=== PATIENT | female | born 1960 | race African-American/Black ===

== ENCOUNTER 2025-03-28 01:54 | Day surgery (SDC) | payer OTHER, SELFPAY ==
--- OUTSIDE RECORDS SUMMARY | 1999-05-24 04:00 | XMS_ITS | Continuity of Care Document ---
Author Organization [facility] Address [address] [place] [address] [address] [place] [address] Phone Care Team Providers Care Occupational Safety Specialist Name Role Phone Nico Fitzgerald Unavailable Unavailable Advance Directives Directive Yes / No Effective Date File Name No Information Encounters Encounter Description Practice Location Reason(s) For Visit Diagnoses Date Provider Providers Copied on Encounter [facility], [id number] [place] [address] [address], [place], [place], [id number], [place] tel:[phone] [facility] No Information [phone] Amilcar Walsh. [address] [facility] , [address], [place], [address], [place]. tel:[phone] Family History Family Member Type Diagnosis Age At Onset No Information Payers Payer name Insurance type Covered green party ID Authoriza tion(s) No Information Social History Type Description Quantity Date Captured Comments Sex Female Smoking Status No Information Chief Complaint And Reason For Visit No Information Reason For Referral Reason For Referral No Information History Of Present Illness Encounter Date Complaint History Of Prese nt Illness No Information Functional Status Date Functional Assessmen t No Information Instructions Date Instruction Additional Infor mation No Information Assessments Type Assessment Date No Information Patient Care Teams Name Effective Dates (start - stop) Status Members No Information
--- OUTSIDE RECORDS SUMMARY | 2013-01-08 03:40 | XMS_ITS | Continuity of Care Document ---
Author Organization 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 Name Role Phone Unavailable Unavailable Unavailable Allergies, Adverse Reactions, Alerts Substance Reaction Status Criticality No Known allergies Procedures Procedure Date OFFICE/OUTPATIENT VISIT, [facility] Advance Directives Directive Yes / No Effective Date File Name Resuscitation Not Answered N/A N/A Life Support Not Answered N/A N/A Intubation Not Answered N/A N/A Antibiotics Not Answered N/A N/A IV Fluid Support Not Answered N/A N/A Tube Feed Not Answered N/A N/A Other Directive N/A N/A WARNING:The information contained in this section is historical and is provided for information only and does not constitute a legal document or any assurance that the information is still accurate. Please verify the information with the osorio of the legal document before using it for clinical purposes. Encounters Encounter Description Practice Location Reason(s) For Visit Diagnoses Date Provider Providers Copied on Encounter [facility] , [address], [place], [place], [id number], [place] tel:[phone] [facility] No Information 3 No Information OFFICE/OUTPAT IENT VISIT, [facility] , [address], [place], [place], [id number], [place] tel:[phone] [facility] [place] PPD (chief complaint) Screening examination for pulmonary tuberculosis 2 No Information Family History Family Member Type Diagnosis Age At Onset No Information Payers Payer name Insurance type Covered alliance party ID Authoriza tion(s) No Information Social History Type Description Quantity Date Captured Comments Alcohol Use Details Unknown Caffeine Use Details Unknown Tobacco Use Status No Information Smoking Status No Information Sex Female Vital Signs Date / Time: Height Weight BMI Pulse Rate Blood Pressure Temperature Respiratory Rate Body Surface Area Head Circumference Head Circ. Percentile Wt./Jerod. Percentile BMI percentile Pulse Ox Inhaled Ox 9:17 AM 67.00 in 135.20 lbs 21.1 7 kg/m eter (2) 98 /min 152/96 mm[Hg] 97.30 F 20 /min Chief Complaint And Reason For Visit No Information Reason For Referral Reason For Referral No Information History Of Present Illness Encounter Date Complaint History Of Prese nt Illness No Information Functional Status Date Functional Assessmen t Pain Score 0/10 Instructions Date Instruction Additional Infor mation No Information Assessments Type Assessment Date No Information Patient Care Teams Name Effective Dates (start - stop) Status Members No Information
[2025-03-18 12:25] VITALS: BMI 18.6
--- OUTSIDE RECORDS SUMMARY | 2025-03-28 01:57 | XMS_ITS | Data Portability ---
Author Organization JAYESH MAJORRadha Address [address] [facility] [place] [address] Assessment No assessment recorded. Plan of Treatment Reminders Order Date Submit Date Provider Last Modified By Organization Details Last Modified Time Details Appointments ANY 15 2024 02:45P Chava June MD Not available Not available Not available Lab JESUS MANUEL (antinucl ear antibodie s) screen, ifa, serum 2024 025 [facility], [address] [place] [address], [address], [place], [address], 03/12/2025 15:11:37 inflammat ion panel, serum or plasma 2024 025 [facility], [address] [place] [address], [address], [place], [address], 03/12/2025 15:11:38 vitamin B12, serum 2024 025 [facility], [address] [place] [address], [address], [place], [address], 03/12/2025 15:11:38 TSH, ultra-sen sitive, serum 2024 025 [facility], [address] [facility], [address], [place], [address], 12/27/2024 07:13:29 CBC 2024 025 [facility], [address], [address], [place], [address], 12/27/2024 07:13:30 lipid panel, serum 2024 025 [facility], [address], [address], [place], [address], 12/27/2024 07:13:26 vitamin D, 25-hydrox y, total, serum 2024 025 [facility]AT[facility], [address], [address], [place], [address], 12/27/2024 07:13:31 noninvasi ve colorecta l cancer DNA + occult blood screening , QL, stool 2024 025 [facility], [address], [address], [place], [address], 12/17/2024 19:04:57 basic metabolic 1998 panel, serum or plasma 2024 025 [facility], [address], [address], [place], [address], 12/27/2024 07:13:27 microalbu min/creat inine, mass ratio, urine 2024 025 [facility], [address], [place], [address], 03/20/2025 09:35:07 urinalysi s complete, reflex culture 2024 025 [facility]akathy [facility], [address], [address], [place], [address], 03/20/2025 09:35:06 Referral urologist referral - Peristent hematuria 2022 023 [facility], [address] [facility], [place], [address], 07/19/2023 09:29:39 gastroent erologist referral - Screening colonosco py, please 2022 023 juan f Sam MD, [address] [facility], [address], [place], [address], 07/19/2023 09:29:38 Procedures None recorded. Surgeries None recorded. Imaging electromy ogram + nerve conductio n study - Finger tip numbness [address] ([facility]), [address] [place] [address], [phone], 03/26/2025 09:48:57 MAMMO, screening , digital, bilateral [address] [place] [address], [address] [place] [address], [id number], 03/27/2025 10:07:28 MAMMO, screening , unilatera l - Hx. of right sided breast cancer [address], [address] [place] [address], [id number], 03/27/2025 10:07:29 Medication Orders ergocalci ferol (vitamin D2) 1,250 mcg (50,000 unit) capsule [address] [facility], [address] [place] [address], [id number], 02/27/2025 11:04:10 hydrochlo rothiazid e 25 mg tablet 2024 025 [facility], [address] [place] [address], [id number], 02/27/2025 11:05:48 losartan 25 mg tablet 2024 025 [facility], [address] [place] [address], [id number], 02/27/2025 10:40:39 Debrox 6.5 % ear drops 2022 023 [place] [address] [facility], [address] [place] [address], [id number], 11/29/2024 10:59:56 ofloxacin 0.3 % ear drops 2022 023 [place] [address] [facility], [address] [place] [address], [id number], 11/29/2024 10:59:46 losartan 25 mg tablet 2022 023 [place] [address] [facility], [address] [place] [address], [id number], 11/29/2024 10:59:43 hydrochlo rothiazid e 25 mg tablet 2022 023 [place] [address] [facility], [address] [place] [address], [id number], 11/29/2024 10:59:50 fluticaso ne propionat e 50 mcg/actua tion nasal spray,mickey pension 2022 023 [place] [address] [facility], [address] [place] [address], [id number], 11/29/2024 10:59:53 loratadin e 10 mg tablet 2022 023 [place] [address] [facility], [address] [place] [address], [id number], 11/29/2024 10:59:48 Debrox 6.5 % ear drops 2022 023 [place] [address] [facility], [address] [place] [address], [id number], 11/29/2024 10:59:56 Patient TargetsNo targets recorded. Patient Instructions Encounter Date Encounter Id Patient Instructions Last Modified By Organization Details Last Modified Time 01/02/2023 [id number] Repeat UA as previously ordered Debrox as previously ordered GI Follow up in 2 weeks oajao Not available 01/02/2023 15:05:58 01/18/2023 [id number] seasonal allergies: care instructions oajao Not available 01/18/2023 15:55:43 Fluticasone NS Loratadine Ofloxacin [facility] GI as referred Follow up in 6 months oajao Not available 01/18/2023 16:54:49 11/29/2024 [id number] mammogram: about this test oajao Not available 11/29/2024 11:15:36 grief (actual/anticipat ed): care instructions oajao Not available 11/29/2024 11:46:17 learning about healthy weight oajao Not available 11/29/2024 11:43:57 Labs MMG Restart Losartan and then HCTZ Stop smoking Cologuard Follow up as scheduled on 12/23/2024 oajao Not available 11/29/2024 11:46:34 12/23/2024 [id number] abnormal weight loss: care instructions oajao Not available 12/23/2024 18:03:21 Can she be referred her to a GI group elsewhere? 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 Screening for malignant neoplasm of colon Screening colonoscopy, please Referring Physician: Yolanda June, Internal Medicine, Encounter Date: 01/02/2023 Urologist Referral for Blood in urine Peristent hematuria Peristent hematuria Referring Physician: Yolanda June, Internal Medicine, Encounter Date: 01/18/2023 Results Created Date Observation Date Name Description Value Unit Range Abnormal Flag Note LastModifiedBy Organization Detail LastModifiedTime 01/03/2001/02/2023 URINA LYSIS , ROUTI NE specific gravity 1.020 1.001- 1.035 Not Available [facility] [address] [place], [address], 01/03/2023 06:15:17 01/03/20 23 01/02/2023 URINA LYSIS , ROUTI NE pH 6.0 5.0-7. 0 Not Available [facility] [address] [place], [address], 01/03/2023 06:15:17 01/03/20 23 01/02/2023 URINA LYSIS , ROUTI NE urine-color YELLOW yellow Not Available [facility] [address] [place], [address], 01/03/2023 06:15:17 01/03/20 23 01/02/2023 URINA LYSIS , ROUTI NE appearance CLEAR Not Available [facility] Department [address] [place], [address], 01/03/2023 06:15:17 01/03/20 23 01/02/2023 URINA LYSIS , ROUTI NE WBC esterase COMMEN T NEGAT SANDY Not Available [facility] [address] [place], [address], 01/03/2023 06:15:17 01/03/20 23 01/02/2023 URINA LYSIS , ROUTI NE protein COMMEN T NEGAT SANDY Not Available [facility] [address] [place], [address], 01/03/2023 06:15:17 01/03/20 23 01/02/2023 URINA LYSIS , ROUTI NE glucose COMMEN T NEGAT SANDY Not Available [facility] [address] [place], [address], 01/03/2023 06:15:17 01/03/20 23 01/02/2023 URINA LYSIS , ROUTI NE ketones COMMEN T NEGAT SANDY Not Available [facility] [address] [facility], [place], [address], 01/03/2023 06:15:17 01/03/20 23 01/02/2023 URINA LYSIS , ROUTI NE occult blood SEE BELOW: niki/u L negati ve abnormal TRACE -INTA CT Not Available [facility] [address] [facility], [place], [address], 01/03/2023 06:15:17 01/03/20 23 01/02/2023 URINA LYSIS , ROUTI NE bilirubin COMMEN T negati ve NEGAT SANDY Not Available [facility] [address] [place], [address], 01/03/2023 06:15:17 01/03/20 23 01/02/2023 URINA LYSIS , ROUTI NE urobilinogen ,semi-qn 0.2 eu/dL <=1.0 Not Available [facility] [address] [facility], [place], [address], 01/03/2023 06:15:17 01/03/20 23 01/02/2023 URINA LYSIS , ROUTI NE nitrite, urine COMMEN T negati ve NEGAT SANDY Not Available [facility] [address] [facility], [place], [address], 01/03/2023 06:15:17 01/03/20 23 01/02/2023 MICRO SCOPI C EXAMI NATIO N WBC COMMEN T NONE SEEN Not Available [facility] [address] [place], [address], 01/03/2023 06:15:16 01/03/20 23 01/02/2023 MICRO SCOPI C EXAMI NATIO N RBC 0-2 Not Available [facility] [address] [facility], [place], [address], 01/03/2023 06:15:16 01/03/20 23 01/02/2023 MICRO SCOPI C EXAMI NATIO N epithelial cells (non renal) COMMEN T OCCAS IONAL Not Available [facility] [address] [facility], [place], [address], 01/03/2023 06:15:16 01/03/20 23 01/02/2023 MICRO SCOPI C EXAMI NATIO N bacteria COMMEN T NONE SEEN Not Available [facility] [address] [facility], [place], [address], 01/03/2023 06:15:16 12/12/19 25 12/11/2024 COLOG UARD cologuard result reportable POSITI VE negati ve abnormal The Colog uard (TM) test was perfo rmed on this speci men. POSIT SANDY TEST RESUL T. A posit sandy Colog uard resul t shoul d be follo wed with a colon oscop y or visua l exami natio n of the colon . The cheryl l value (refe rence range ) for this assay is negat sandy. TEST DESCR IPTIO N: [place] site algor ithmi c aníbal sis of stool DNA-b leslie davalos with hemog lobin immun oassa y. Quant itati ve value s of indiv idual bioma rkers are not repor table and are not assoc iated with indiv idual bioma rker resul t refer ence range s. Colog uard is inten ded for color ectal cance r scree alina of adult s of eithe r sex, 45 years or older , who are at [facility] for color ectal cance r (CRC) . Colog uard has been appro josephine for use by the U.S. FDA. The perfo rmanc e of Colog uard was estab lishe d in a cross secti onal study of [facility] adult s aged 50-84 . Colog uard perfo rmanc e in patie nts ages 45 to 49 years was estim ated by sub-g roup aníbal sis of near- age group s. Colon oscop ies perfo rmed for a posit sandy resul t may find as the most clini marcelo signi ficdana t lesio n: color ectal cance r [4.0% ], advan linh adeno ma (incl uding sessi le med kiersten polyp s great er than or equal to 1cm diame ter) [20%] or non- advan linh adeno ma [31%] ; or no color ectal neopl arik [45%] . These estim ates are deriv ed from a prosp ectiv e cross -sect ional scree alina study of 0 indiv idual s at [facility] risk for color ectal cance r who were scree nohemi with both Colog uard and colon oscop y. (Jessica Diaz al, N Engl J Med 2014; 370(1 4):12 86-12 97.) Colog uard may produ ce a false negat sandy or false posit sandy resul t (no color ectal cance r or preca ncero us polyp prese nt at colon oscop y follo w up). A negat sandy Colog uard test resul t does not guara ntee the absen ce of CRC or advan linh adeno ma (pre- cance r). The curre nt Colog uard scree alina inter chip is every 3 years . (Amer ican Cance r Socie ty and U.S. Multi -Soci ety Task Force ). Colog uard perfo rmanc e data in a 0 patie nt pivot al study using colon oscop y as the refer ence metho d can be acces sed at the follo wing locat ion: www.e xactl abs.c om/re meche . Addit ional descr iptio n of the Colog uard test proce ss, warni ngs and preca ution s can be found at www.c jeff valero.c om. Not Available [facility] [address], [place], [address], 12/17/2024 19:04:57 12/27/19 25 12/27/2024 LIPID PANEL cholesterol, total 205 mg/dL 100-19 9 above high normal Not Available [facility] ([facility]) [address] [place], [address], 12/27/2024 07:13:26 12/27/19 25 12/27/2024 LIPID PANEL triglyceride s 47 mg/dL 0-149 Not Available [facility] ([facility]) [address] [place], [address], 12/27/2024 07:13:26 12/27/19 25 12/27/2024 LIPID PANEL HDL cholesterol 68 mg/dL >39 Not Available [facility] ([facility]) [address] [place], [address], 12/27/2024 07:13:26 12/27/19 25 12/27/2024 LIPID PANEL VLDL cholesterol diego 9 mg/dL 5-40 Not Available [facility] ([facility]) [address] [place], [address], 12/27/2024 07:13:26 12/27/19 25 12/27/2024 LIPID PANEL LDL chol calc ([facility]) 128 mg/dL 0-99 above high normal Not Available [facility] ([facility]) [address] [place], [address], 12/27/2024 07:13:26 12/27/19 25 12/27/2024 BASIC METAB OLIC PANEL (7) glucose 80 mg/dL 70-99 Not Available [facility] ([facility]) [address] [place], [address], 12/27/2024 07:13:27 12/27/19 25 12/27/2024 BASIC METAB OLIC PANEL (7) BUN 15 mg/dL 8-27 Not Available [facility] ([facility]) [address] [place], [address], 12/27/2024 07:13:27 12/27/19 25 12/27/2024 BASIC METAB OLIC PANEL (7) creatinine 0.76 mg/dL 0.57-1 .00 Not Available [facility] ([facility]) [address] [place], [address], 12/27/2024 07:13:27 12/27/19 25 12/27/2024 BASIC METAB OLIC PANEL (7) eGFR 88 mL/mi n/1.7 3 >59 Not Available [facility] ([facility]) [address] [place], [address], 12/27/2024 07:13:27 12/27/19 25 12/27/2024 BASIC METAB OLIC PANEL (7) BUN/creatini ne ratio 20 12-28 Not Available [facility] ([facility]) [address] [place], [address], 12/27/2024 07:13:27 12/27/19 25 12/27/2024 BASIC METAB OLIC PANEL (7) sodium 138 mmol/ L 134-14 4 Not Available [facility] ([facility]) [address] [place], [address], 12/27/2024 07:13:27 12/27/19 25 12/27/2024 BASIC METAB OLIC PANEL (7) potassium 4.2 mmol/ L 3.5-5. 2 Not Available [facility] ([facility]) [address] [place], [address], 12/27/2024 07:13:27 12/27/19 25 12/27/2024 BASIC METAB OLIC PANEL (7) chloride 99 mmol/ L 96-106 Not Available [facility] ([facility]) [address] [place], [address], 12/27/2024 07:13:27 12/27/19 25 12/27/2024 BASIC METAB OLIC PANEL (7) carbon dioxide, total 22 mmol/ L 20- Not Available [facility] ([facility]) [address] [facility], [place], [address], 12/27/2024 07:13:27 12/27/19 25 12/26/2024 UNABL E TO VOID unable to void COMMEN T Patie nt unabl e to void. Urine to be colle cted at a later date. Not Available [facility] ([facility]) [address] [facility], [place], [address], 12/27/2024 07:13:28 12/27/19 25 12/27/2024 TSH TSH 0.530 uIU/m L 0.450- 4.500 Not Available [facility] ([facility]) [address] [facility], [place], [address], 12/27/2024 07:13:29 12/27/19 25 12/26/2024 CBC, PLATE LET, NO DIFFE RENTI AL WBC 8.1 x10e3 /uL 3.4-10 .8 Not Available [facility] ([facility]) [address] [facility], [place], [address], 12/27/2024 07:13:30 12/27/19 25 12/26/2024 CBC, PLATE LET, NO DIFFE RENTI AL RBC 4.19 x10e6 /uL 3.77-5 .28 Not Available [facility] ([facility]) [address] [place], [address], 12/27/2024 07:13:30 12/27/19 25 12/26/2024 CBC, PLATE LET, NO DIFFE RENTI AL hemoglobin 14.0 g/dL 11.1-1 5.9 Not Available [facility] ([facility]) [address] [facility], [place], [address], 12/27/2024 07:13:30 12/27/19 25 12/26/2024 CBC, PLATE LET, NO DIFFE RENTI AL hematocrit 42.3 % 34.0-4 6.6 Not Available [facility] ([facility]) [address] [facility], [place], [address], 12/27/2024 07:13:30 12/27/1912/26/2024 CBC, PLATE LET, NO DIFFE RENTI AL MCV 101 fL 79-97 above high normal Not Available [facility] ([facility]) [address] [facility], [place], [address], 12/27/2024 07:13:30 12/27/19 25 12/26/2024 CBC, PLATE LET, NO DIFFE RENTI AL MCH 33.4 pg 26.6-3 3.0 above high normal Not Available [facility] ([facility]) [address] [facility], [place], [address], 12/27/2024 07:13:30 12/27/1912/26/2024 CBC, PLATE LET, NO DIFFE RENTI AL MCHC 33.1 g/dL 31.5-3 5.7 Not Available [facility] ([facility]) [address] [place], [address], 12/27/2024 07:13:30 12/27/1912/26/2024 CBC, PLATE LET, NO DIFFE RENTI AL RDW 12.5 % 11.7-1 5.4 Not Available [facility] ([facility]) [address] [place], [address], 12/27/2024 07:13:30 12/27/1912/26/2024 CBC, PLATE LET, NO DIFFE RENTI AL platelets 294 x10e3 /uL 150-45 0 Not Available [facility] ([facility]) [address] [facility], [place], [address], 12/27/2024 07:13:30 12/27/19 25 12/27/2024 VITAM IN D, 25-HY DROXY vitamin D, 25-hydroxy 15.0 NG/mL 30.0-1 00.0 below low normal Vitam in D defic iency has been defin ed by the Insti tute of Medic ine and an Endoc rine Socie ty pract ice guide line as a level of serum 25-OH vitam in D less than 20 ng/mL (1,2) . The Endoc rine Socie ty went on to furth er defin e vitam in D insuf ficie ncy as a level betwe en 21 and 29 ng/mL (2). 1. IOM (Inst itute of Medic ine). 2010. Dieta ry refer ence intak es for calci um and D. Shelby monique [place]: The Natio nal [facility] Press . 2. Mahin nixon [place], Brian atkinson [place], Gianna off-F marcio i VALENTINE, et al. Evalu ation , treat ment, and preve ntion of vitam in D defic iency : an Endoc rine Socie ty clini diego pract ice guide line. JCEM. 2010; 96(7) :1911 -30. Not Available [facility] ([facility]) [address] [facility], [place], [address], 12/27/2024 07:13:31 03/07/2003/12/2025 JESUS MANUEL BY IFA RFX TITER /FANY BLAS JESUS MANUEL by ifa rfx titer/patter n NEGATI VE Negat sandy <1:80 Borde rline 1:80 Posit sandy >1:80 ICAP nomen addy re: AC-0 For more infor matangel n about Hep-2 cell patte rns use ANApa ttern s.org , the offic ial websi te for the Inter natio nal Conse nsus on Antin uclea r Antib rachel (JESUS MANUEL) Patte rns ([facility] ). Not Available [facility] ([facility]) [address] [facility], [place], [address], 03/12/2025 15:11:37 03/07/20 25 03/08/2025 ESR-W ES+CR P sedimentatio n rate-westerg deejay 8 mm/HR 0-40 Not Available [facility] ([facility]) [address] [facility], [place], [address], 03/12/2025 15:11:38 03/07/2003/08/2025 ESR-W ES+CR P C-reactive protein, quant 1 mg/L 0-10 Not Available [facility] ([facility]) [address] [facility], [place], [address], 03/12/2025 15:11:38 03/07/2003/08/2025 VITAM IN B12 vitamin B12 433 pg/mL 232-12 45 Not Available [facility] ([facility]) [address] [facility], [place], [address], 03/12/2025 15:11:38 Result Notes None recorded. Problems Name Problem SNOMED Code Status Onset Date Resolution Date Notes Provider Name and Address Organization Details Recorded Time History of total hysterectom y 338797281 Active 2022 Yolanda June MD Attn: Aniya g,[address] [facility], [place], [address], [place] [facility] 3 10:41:03 History of right mastectomy 963860241 Active 2022 Yolanda June MD Attn: Accountin g,[address] [facility], [place], [address], [place] [facility] 3 10:41:04 History of malignant neoplasm of breast 688662296 Active 2022 Yolanda June MD Attn: Kalpeshin g,[address] [facility], [place], [address], [place] [facility] 3 10:48:53 Disorder of lipid metabolism 029103107 Active 2022 Yolanda June MD Attn: Aniya g,[address] [facility], [place], [address], [place] [facility] 3 11:39:30 Benign essential hypertensio n 7323685 Active 2022 Yolanda June MD Attn: Aniya campos,[address] [facility], [place], [address], [place] [facility] 3 11:39:36 Blood in urine 35994204 Active 2022 Yolanda June MD Attn: Aniya campos,[address] [facility], [place], [address], [place] [facility] 3 13:43:36 Impacted cerumen of bilateral ears 7058302118229 108 Active 2022 Yolanda June MD Attn: Accountkathia campos,[address] [facility], [place], [address], [place] [facility] 3 15:02:14 Simple renal cyst 83135500 Active 2022 Yolanda June MD Attn: Aniya campos,[address] [facility], [place], [address], [place] [facility] 3 15:03:24 Colorectal cancer detected by DNA-based stool screening 203830347 Active 2024 Yolanda June MD Attn: Aniya campos,[address] [facility], [place], [address], [place] [facility] 5 09:01:29 Hypercholes terolemia 40870941 Active 2024 Yolanda June MD Attn: Aniya campos,[address] [facility], [place], [address], [place] [facility] 5 10:18:45 Problem Notes None recorded. Procedures Surgical History Date Name Laterality Status Provider Name and Address Organization Details Recorded Time 01/03/20 23 Generic Procedure completed Yolanda June MD Attn: Accounting,[address] [facility], [place], [address], [place] - [facility] 01/02/2023 15:04:14 excision of right breast completed Harika Merida [place] 09/28/2022 10:33:35 Partial hysterectomy completed Harika Merida [place] [facility] 09/28/2022 10:33:47 Imaging Results None recorded. Procedure Notes None recorded. Medical Equipment None Reported. Allergies No known drug allergies Medications Name Sig Start Date Stop Date Status Note LastModified by Organization Details LastModified Time Debrox 6.5 % ear drops INSTILL 5 DROPS INTO AFFECTED EAR(S) BY OTIC ROUTE 2 TIMES PER DAY for 4 days 11/29 completed Not Available Not Available Not Available ofloxacin 0.3 % ear drops Instill 10 drops every day by otic route around the clock for 7 days. 11/29 completed Not Available Not Available Not Available losartan 25 mg tablet TAKE ONE TABLET BY MOUTH EVERY MORNING FOR BLOOD PRESSURE active Not Available Not Available No t Available hydrochloro thiazide 25 mg tablet TAKE ONE TABLET BY MOUTH EVERY MORNING FOR FLUID RETENTION active Not Available Not Available No t Available gabapentin 100 mg capsule active pt last seen on 04/23 Not Available Not Available Not Available ergocalcife rol (vitamin D2) 1,250 mcg (50,000 unit) capsule TAKE 1 CAPSULE BY MOUTH EVERY WEEK FOR VITAMIN DEFICIENC Y (around THE clock) active Not Available Not Available No t Available fluticasone propionate 50 mcg/actuati on nasal spray,suspe nsion SPRAY ONE PUFF IN EACH NOSTRIL EVERY DAY 11/29 completed Not Available Not Available Not Available loratadine 10 mg tablet TAKE ONE TABLET BY MOUTH EVERY DAY 11/29 completed Not Available Not Available Not Available Vitals Date Recorded Body mass index (BMI) Body height Respiratory rate Provider Name and Address Organization Details Last Updated DateTime 11/29/2024 19.8 kg/m2 167.64 cm 14 /min Yolanda June MD Attn: Accounting,[address] [facility], [place], [address], [facility] 11/29/2024 11:44:06 Date Recorded Body weight Body temperature Heart rate Oxygen saturation Oxygen saturation in Arterial blood by Pulse oximetry Systolic And Diastolic Provider Name and Address Organization Details Last Updated DateTime 15325.0 7 g 97.8 [degF] 83 /min 100 % 100 % 160/92 mm[Hg] Karina Narvaez [facility] 06/06/202 5 11:04:12 Date Recorded Body height Body mass index (BMI) Body weight Heart rate Oxygen saturation Oxygen saturation in Arterial blood by Pulse oximetry Respiratory rate Body temperature Systolic And Diastolic Provider Name and Address Organization Details Last Updated DateTime 5 167.64 cm 18.8 kg/m2 99367.8 7 g 90 /min 96 % 96 % 12 /min 98.9 [degF] 134/78 mm[Hg] Harika Merida MA [facility] 5 15:42:01 Date Recorded Body height Body mass index (BMI) Body weight Oxygen saturation Oxygen saturation in Arterial blood by Pulse oximetry Respiratory rate Heart rate Systolic And Diastolic Provider Name and Address Organization Details Last Updated DateTime 3 167.64 cm 19.5 kg/m2 15436.9 6 g 99 % 99 % 16 /min 84 /min 134/80 mm[Hg] Harika Merida MA [facility] 3 14:33:27 Date Recorded Body height Body mass index (BMI) Body weight Heart rate Oxygen saturation Oxygen saturation in Arterial blood by Pulse oximetry Systolic And Diastolic Provider Name and Address Organization Details Last Updated DateTime 3 167.64 cm 20 kg/m2 26162.4 5 g 88 /min 99 % 99 % 132/80 mm[Hg] Vandana Garcia MA [facility] 3 15:18:19 Date Recorded Body height Body mass index (BMI) Body weight Heart rate Oxygen saturation Oxygen saturation in Arterial blood by Pulse oximetry Respiratory rate Body temperature Systolic And Diastolic Provider Name and Address Organization Details Last Updated DateTime 5 167.64 cm 18.4 kg/m2 22074.4 5 g 68 /min 100 % 100 % 14 /min 98.1 [degF] 130/80 mm[Hg] Harika Merida MA [facility] 5 09:40:50 Social History Question Answer Notes LastModified by Organizat ion Details LastModified Time Tobacco Smoking Status Current Every Day Smoker MANOLO Patel [facility] 09/28/2022 10:32:23 How Many Years Have You Consumed Alcohol? 55 Information not available 09/28/2022 Are You Blind Or Do You Have Difficulty Seeing? No Information not available 09/28/2022 What Is Your Level Of Caffeine Consumption? Occasional Information not available 09/28/2022 Are You Deaf Or Do You Have Serious Difficulty Hearing? No Information not available 09/28/2022 What Type Of Diet Are You Following? REGULAR Information not available 09/28/2022 What Was The Date Of Your Most Recent Tobacco Screening? 02/27/2025 Information not available 02/27/2025 What Is Your Current Pack Years? 20-29packyears Information not available 09/28/2022 Do You Use Your Seat Belt Or Car Seat Routinely? Yes Information not available 09/28/2022 Do You Have Smoke And Carbon Monoxide Detectors In Your Home? Yes Information not available 09/28/2022 At What Age Did You Start Smoking Tobacco? 19 Information not available 11/29/2024 How Much Tobacco Do You Smoke? 1 PPW Cigars Information not available 02/27/2025 Has Tobacco Cessation Counseling Been Provided? Yes Information not available 09/28/2022 On What Date Was Tobacco Cessation Counseling Provided? 02/27/2025 Information not available 02/27/2025 How Many Years Have You Smoked Tobacco? 27 I Quit For 19 Years In My 30's Information not available 11/29/2024 Sex: Unknown Functional Status Question Answer Note LastModified by Organizat ion Details LastModified Time Do you use any illicit or recreational drugs? No Information not available 09/28/2022 Do you or have you ever used any other forms of tobacco or nicotine? No Information not available 09/28/2022 What is your level of alcohol consumption? Moderate Pt states she has been drinking a lot more in the last few years. Too much Beer, wine, Tequila Stopped 11/25/2024 Information not available 11/29/2024 Are you currently employed? Yes Information not available 09/28/2022 Are you able to care for yourself independently? Yes Information not available 09/28/2022 Mental Status Question Answer Note LastModified by Organization D etails LastModified Time Do you feel stressed (tense, restless, nervous, or anxious, or unable to sleep at night)? [id number] juan f Information not available 11/29/2024 Family History Relationship Description Onset Age of this Age Resolved Age Notes LastModified by Organization Details LastModified Time Brother Hypertensive disorder juan f Not available 2022 10:46:03 Medical History Condition Response Coronary Artery Disease N Other N Atrial Fibrillation N High Blood Pressure Y Thyroid Problems N Kidney or Bladder Problems N GI Problems N Depression N COPD N Blood Clots N Skin Problems N Anemia N Heart Attack (PR) N Anxiety Disorder N Diabetes N Muscle, Joint, or Bone Problems N Seizures/Epilepsy N Acid Reflux (GERD) N Cancer Y Stroke N Asthma N Allergies N High Cholesterol N Hepatitis N Liver Disease N Headaches N Osteoporosis N Heart Failure N Gynecological History Statement/Question Response Current Control Method Hysterectom y Obstetrics History GPAL:G 0 P 0 0 0 0 Immunizations Vaccine Type Date Status Note Provider Nam e and Address Organization Details Recorded Time COVID-19, mRNA, LNP-S, PF, 30 mcg/0.3 mL dose 2 completed Yolanda June MD Attn: [address] [place], [place], [address] [place] [address], [place] [facility] 09/28/2022 10:37:44 COVID-19, mRNA, LNP-S, PF, 10 mcg/0.2 mL dose, florin-sucrose 1 completed Yolanda June MD Attn: [address] [place], [place], [address] [place] [address], [place] [facility] 10/07/2022 11:41:51 COVID-19, mRNA, LNP-S, PF, 10 mcg/0.2 mL dose, florin-sucrose 1 completed Yolanda June MD Attn: [address] [place], [place], [address] [place] [address], [place] [facility] 09/28/2022 10:44:49 influenza, unspecified formulation 2 completed Yolanda June MD Attn: [address] [place], [address] [place] [address], [place] [facility] 09/28/2022 10:45:18 Tdap 3 completed Harika Merida [place] null, [place] [facility] 09/28/2022 11:50:32 Pneumococcal conjugate PCV20, polysaccharide UUV730 conjugate, adjuvant, PF 5 completed Karina Narvaez [place], [place] [facility] 11/29/2024 17:03:20 Past Encounters Encounter ID Performer Location Encounter Start Date Encounter Closed Date Diagnosis/Indication Diagnosis SNOMED-CT Code Diagnosis ICD10 Code Diagnosis IMO Codes Diagnosis Note [id number] MD Loreto June (Adult Med) [address] [place] [address] [id number] 0 09/28/2022 09:58:40 09/29/2022 14:12:15 Adult health examination 670055124 Z00.01 Benign ess ential hypertension 7483978 I10 History of total hysterectomy 740837388 Z90.710 History of right mastectomy 461996123 Z90.11 Immunization advised 310 947679 Z71.9 History of malignant neoplasm of breast 588281774 Z85.3 Normal grief reaction 27 2042618 F43.20 Nicotine dependence 5629 4008 F17.200 Screening for malignant neoplasm of breast 596962827 Z12.39 Screening for malignant neoplasm of colon 690147524 Z12.11 Impacted c erumen of bilateral ears 2248859483 573143 H61.23 [id number] MD Loreto June (Adult Med) [address] [place] [address] [id number] 0 10/07/2022 11:13:14 10/10/2022 13:51:46 Disorder of lipid metabolism 520274431 E78.9 Benign ess ential hypertension 0999774 I10 Continue HCTZStart Losartan, side effects were discussed Blood in urine 82040078 R31.9 DiscussedA ddendumUAU S [id number] MD Loreto June (Adult Med) [address] [place] [address] [id number] 0 01/18/2023 15:07:20 01/19/2023 14:31:26 Blood in urine 58949733 R31.9 Persistent hematuria, may be from her cystsUrolo gy OV 01/02/2023U S renal cystsRepea t UA OV 4/14/2023D iscussedAd dendumUAUS Seasonal a llergic rhinitis 477045807 J30.2 Otitis externa 1787567 H 60.92 Impacted c erumen of bilateral ears 6679849354 975328 H61.23 Benign ess ential hypertension 8133420 I10 Stable on HCTZ and Losartan. [id number] MD Loreto June (Adult Med) [address] [place] [address] [id number] 01/02/2023 14:20:15 01/04/2023 10:54:09 Blood in urine 30250921 R31.9 US renal cystsRepea t UA OV 10/07/2022 iscussedAd dendumUAUS Screening for malignant neoplasm of colon 425353379 Z12.11 Impacted c erumen of bilateral ears 5745495889 849796 H61.23 Simple renal cyst 252225 09 N28.1 [id number] MD Loreto June (Adult Med) [address] [place] [address] [id number] 0 11/29/2024 10:48:08 12/02/2024 10:11:50 Blood in urine 82264684 R31.9 Recheck OV 01/18/2023 ersistent hematuria, may be from her cystsUrolo gy OV 01/02/2023U S renal cystsRepea t UA OV 10/07/2022 iscussedAd dendumUAUS Benign ess ential hypertension 2639794 I10 Restart Losartan, then HCTZ, side effects were discussed including but not limited to headaches and dizziness. OV 01/18/2023S table on HCTZ and Losartan. Screening mammography 24 643398 Z12.31 9958048 Requires v accination against Streptococcus pneumoniae 9693989157 Z91.89 96475638 Screening for malignant neoplasm of colon 556032589 Z12.11 044895 Adult [facility] th examination 473106984 Z00.01 8686582 Body mass index less than 20 097931889 Z68.1 19393103 Grief finding 594382679 F43.20 98867 [id number] MD Loreto June (Adult Med) [address] [place] [address] [id number] 0 12/23/2024 15:32:00 12/24/2024 13:15:34 Benign essential hypertension 4843991 I10 Stable OV 11/29/2024Re start Losartan, then HCTZ, side effects were discussed including but not limited to headaches and dizziness. OV 01/18/2023S table on HCTZ and Losartan. Colorectal cancer detected by DNA-based stool screening 073373126 R19.5 21411478 DiscussedG I Note from 12/18/2024 ologuard positive 12/11/2024G I Weight decreased 3346521 01 R63.4 53429 Possibly due to a decrease in her intake.Per iactin? [id number] Yolanda June MD [facility] (Adult Med) [address] [place] [address] [phone] 0 02/27/2025 09:30:53 02/28/2025 10:50:46 Benign essential hypertension 7728240 I10 Stable on Losartan 25 mg and HCTZ 25 mg Colorectal cancer detected by DNA-based stool screening 919747582 R19.5 [id number] Her colonoscop y has been reschedule d OV 12/23/2024D iscussedGI Note from 12/18/2024 ologuard positive 12/11/2024G I Weight decreased 6262758 01 R63.4 49845 Colonoscop yHer labs do not explain her weight loss.-3 lbsShe will need imaging if her colonoscop y is normal OV 12/23/2024P ossibly due to a decrease in her intake.Per iactin? Vitamin D deficiency 347 55421 E55.9 71392 Start weekly Vitamin D Raynaud's phenomenon 266 681301 I73.00 74981653 Neuropathy 686061776 G62 .9 64757 Hypercholesterolemia 136 54811 E78.00 10545 Discussed Decreased body mass index 2034317 Z68.5 7476766608 Underweight 263420577 R6 3.6 Health Concerns Section Related Observation LastModified by Organization Detai ls LastModified Time None Recorded Concern Status LastModified by Organization Details LastModified Time None Recorded Advance Directives Directive None Recorded Payers Insurance Date Sequence Insurance Name Policy Number Policy Aguilar Covered Member ID Aguilar Member ID Guarantor Name 02/24/2025 1 [facility] [id number] Jackie Gray [id number] Jackie Gray 01/18/2023 2 [facility] (MEDICARE REPLACEMENT/AD VANTAGE - HMO) Jackie Gray [id number] Jackie Gray 01/18/2023 2 [facility] (MEDICARE REPLACEMENT/AD VANTAGE - HMO) Jackie Gray [id number] Jackie Gray 01/02/2023 1 [facility] Jackie Gray [id number] Jackie Gray 01/02/2023 1 *SELF PAY* Aryan Gray 01/02/2023 SLIDING FEE SCHEDULE - DISCOUNT Jackie Gray 11/29/2024 1 [facility] - DOS PRIOR TO 2025 (MEDICAID REPLACEMENT - HMO) [id number] Jackie Gray [id number] Jackie Gray Notes Date Note Type Note Provider Name and Address Organization Details Recorded Time 3 text/html ROS as noted in the HPI The ear Ms Gray returns, she would like to have her ears irrigated. She never did obtain the Debrox prescribed. Yolanda June MD Attn: [address] [place], [address], [facility] 01/02/2023 16:29:51 3 text/html ROS as noted in the HPI It just kind of feels sore Ms Gray returns, she can hear better on the left side but she has noticed intermittent pain in the left ear canal. She also has noticed nasal congestion when she wakes up, she feels that it is because she sleeps with the fan on. She denies any urinary symptoms and she is not known to have kidney stones. Yolanda June MD Attn: [address] [facility], [place], [address], [facility] 01/18/2023 16:55:28 5 text/html Hypertension F/UReported by PatientHPIFor medications, patient reportsnot taking medications as directedbut reportsno side effects from medicationandchecks blood pressure at home, range: (elevated). For associated symptoms, patient reportsno dizziness,no lightheadedness,no chest pain,no shortness of breath,no palpitations,no edema, andno calf pain with exertion. For lifestyle, patient reportsregular exerciseandlimiting/avoi ding salt. Anxiety/DepressionReport ed by PatientHPIFor quality, patient reportssymptoms worse in the eveningandsymptoms worse during the day. For context, patient reportsmajor life stressors. For severity, patient reportsdenies suicidal ideations,able to maintain relationships, anddoes not interfere with activities of daily living. For associated symptoms, patient reportsdenies homicidal ideations,no significant weight gain,no significant weight loss,no visual/auditory hallucinations,no delusions,no shortness of breath,mood good,no anxiety,no crying spells,no panic,no isolation,sleeping well,appetite good,energy good,no apathy, andmaintaining functionality.ROS as noted in the HPI Just was concerned about my blood pressure being elevatedJust sad, not depressed Ms. Gray returns, she had no insurance, was unable to follow-up and she has been out of medications. She started a new job and her blood pressure was noted to be elevated, hence her appointment today. She recently changed jobs and it is getting close to the anniversary of his son's , both of these things make her sad, but she is not depressed and she feels otherwise well. Yolanda June MD Attn: [address] [place], [address], [facility] 11/29/2024 11:47:22 5 text/html Hypertension F/UReported by PatientHPIFor associated symptoms, patient reportsno dizziness,no lightheadedness,no chest pain,no shortness of breath,no palpitations,no edema, andno calf pain with exertion. For lifestyle, patient reportsregular exerciseandlimiting/avoi ding salt. For medications, patient reportstaking medications as directedandno side effects from medication.ROS as noted in the HPI I scheduled it with Liz there any type of Protein drink I can take to gain weight? I don't eat in the Summer Ms Gray had a positive Cologuard, her appointment with GI is not until February, Yolanda June MD Attn: [address] [place], [address], [facility] 12/23/2024 18:04:05 5 text/html ROS as noted in the HPI Numbness, tingling in the fingers because I work in the coldI have issues with my Sciatica Ms Isaac complains of tingling and numbness in the fingertips of both hands, this starts after she has been in a cold environment at work and persists after she leaves. She also describes color changes were her fingertips would change to blue. This does not occur during the winter months when she is outside.She has a history of Sciatica and was previously on Tramadol and Gabapentin. Yolanda June MD Attn: [address] [place], [address], [facility] 02/27/2025 11:18:29 OBGyn Episode No OBEpisode recorded.
--- OUTSIDE RECORDS SUMMARY | 2025-03-28 01:57 | XMS_ITS | Clinical Summary ---
Author Organization [facility] [employer] Address [address] [address] Care Team Providers Care Match Up Worker Name Role Phone Renita Sharma MD Primary Care Provider [phone] Source Comments [facility] [employer],non-owned Affiliates and Associated Physician Practices is amultiple site organization consisting of ambulatory clinics and hospital sitesin [place], [place], [place] and [place]. This disclosure is being madepursuant to the Care Everywhere program and may not contain all information available regarding this patient. Last updated 18.[facility] [employer] Social History Tobacco Use Types Packs/Day Years Used Date Smoking Tobacco: Never Assessed Comments Unknown Sex and Gender Information Value Date Recorded Sex Assigned at Not on file Legal Sex Female 6:30 AM [employer]EE[employer] Gender Identity Not on file Sexual Orientation Not on file Plan of Treatment Health Maintenance Due Date Last Done Comments COLOGUARD (AGES 45-75) - COL ON CA SCREENING 1961 COLON MONITORING 1961 COLONOSCOPY - COLON CA SCREENING 1961 CT COLONOGRAPHY - COLON CA SCREENING 1960 Colorectal Cancer Screening 1961 FIT - COLON CA SCREENING 1961 FLEX SIG - COLON CA SCREENING 1961 LIPID TESTING 1961 MAMMOGRAM 1961 HIV SCREENING 1976 HEPATITIS C SCREENING 09/19/1979 DTAP/TDAP/TD VACCINES (1 - Tdap) 1980 PNEUMOCOCCAL VACCINE 50+ (1 of 1 - PCV) 09/24/2011 ZOSTER VACCINE (1 of 2) 09/24/2011 DEPRESSION SCREENING 06/26/2024 COVID-19 VACCINE (1 - 2023-2 5 season) 2025 INFLUENZA VACCINE (#1) 2025 Respiratory Syncytial Virus (RSV) Vaccine Pt: or over 60 yrs (1 - 1-dose 75+ series) 2036 HEPATITIS B VACCINE Aged Out No longe r eligible based on patient's age to complete this topic HIB VACCINE Aged Out No longer eligi ble based on patient's age to complete this topic HPV VACCINE Aged Out No longer eligi ble based on patient's age to complete this topic MENINGOCOCCAL (Group B) VACC INE SHARED DECISION-MAKING Aged Out No longer eligibl e based on patient's age to complete this topic MENINGOCOCCAL GROUPS A/C/Y/W VACCINE Aged Out No longer eligible b ased on patient's age to complete this topic Care Teams Match Up Worker Relationship Specialty Start Date End Date Renita Sharma MD [address] [address] PCP - General 05/10/20
[2025-03-28 14:00] VITALS: BP 152/94; PULSE 95; RESP 16; TEMP 37.1; O2SAT 100
[2025-03-28] MEDS: LACTATED RINGERS 1,000 ML 150 ML IV CONT (14:11)
--- NOTE | 2025-03-28 14:38 | WPDANESEPPF ---
Anes - Initial Pre Proc Eval Procedure: Operation Date: 03/28/25 14:00 Proposed Procedures p Diagnostic Colonoscopy - Juan Manuel Horn MD Date/Time: 03/28/25 14:38 Surgeon: Juan Manuel Horn MD Pre Op Diagnosis: Other fecal abnormalities Patient Data Age: 64 Gender: F Height: 1.68 m Weight: 50 kg Last Vital Signs Temp 37.1 C 03/28/25 14:00 Pulse 95 03/28/25 14:00 Resp 16 03/28/25 14:00 BP 152/94 H 03/28/25 14:00 Pulse Ox 100 03/28/25 14:00 O2 Del Method Room Air 03/28/25 14:00 Allergies Allergy/AdvReac Type Severity Reaction Status Date / Time No Known Allergies Allergy Verified 03/28/25 13:58 Home Medications ?Medication ?Instructions ?Recorded ?Confirmed ?Type ergocalciferol (vitamin D2) 1,250 1,250 mcg PO WEEKLY 03/18/25 03/28/25 History mcg (50,000 unit) capsule hydrochlorothiazide 25 mg tablet 25 mg PO DAILY 03/18/25 03/28/25 History losartan 25 mg tablet 25 mg PO DAILY 03/18/25 03/28/25 History Patient hx anesthesia problems: none Family hx anesthesia problems: none Results Review: All pre-operative results and documents have been reviewed as part of the pre-operative evaluation. [facility] Past Medical History Medical History (Updated 03/28/25 @ 14:40 by Colby Sterling DO) Breast cancer Hyperlipidemia Hypertension Social History Social History (Updated 03/28/25 @ 14:43 by Colby Sterling DO) Years smoked: 10 Smoking status: Current every day smoker Tobacco type: cigarettes Alcohol intake: current Drinks per week: 20 Substance use: current Substance use type: marijuana Other substance usage details: daily Living arrangements: alone Spiritual care concerns: No Anes - Eval Final PreProcedure Day of Procedure 03/28/25 14:38 Patient weight: normal Heart: regular rate and rhythm Lungs: clear to auscultation and normal air movement Airway: Mallampati scale class II Neurological: alert and oriented Last oral intake: >/= 8 hours ASA classification: III Emergent: no Anesthetic plan: proceed Anesthesia type and monitoring: general GIVS and standard monitoring Results Review: All pre-operative results and documents have been reviewed as part of the pre-operative evaluation. Informed Consent: The patient's anesthetic plan and its attendant risks and benefits were discussed with the patient/family/POA. Questions were solicited and answers provided to the satisfaction of the patient/family/POA.
--- NOTE | 2025-03-28 14:50 | PM.HPGS ---
History of Present Illness History of Present Illness Consent: Risks, benefits, and alternatives have been discussed and questions answered. Patient agrees to proceed with procedure. Chief complaint: Other fecal abnormalities Narrative: Jackie Gray is a 64 year old female here for first colonoscopy, + cologuard Review of Systems Review of Systems: All systems reviewed & are unremarkable except as noted in HPI and below PMFSH Past Medical History Medical History (Updated 03/28/25 @ 14:52 by Juan Manuel Horn MD) Positive colorectal cancer screening using Cologuard test Breast cancer Hyperlipidemia Hypertension Social History Social History (Updated 03/28/25 @ 14:43 by Colby Sterling DO) Years smoked: 10 Smoking status: Current every day smoker Tobacco type: cigarettes Alcohol intake: current Drinks per week: 20 Substance use: current Substance use type: marijuana Other substance usage details: daily Living arrangements: alone Spiritual care concerns: No Meds Home Medications and Allergies Home Medications ?Medication ?Instructions ?Recorded ?Confirmed ?Type ergocalciferol (vitamin D2) 1,250 1,250 mcg PO WEEKLY 03/18/25 03/28/25 History mcg (50,000 unit) capsule hydrochlorothiazide 25 mg tablet 25 mg PO DAILY 03/18/25 03/28/25 History losartan 25 mg tablet 25 mg PO DAILY 03/18/25 03/28/25 History Allergies Allergy/AdvReac Type Severity Reaction Status Date / Time No Known Allergies Allergy Verified 03/28/25 13:58 Vital Signs Vital Signs - 24 hr 03/28/25 14:00 Temperature 98.7 F Pulse Rate 95 Respiratory Rate 16 Blood Pressure 152/94 H Pulse Oximetry 100 Oxygen Delivery Room Air Exam Const: General: comfortable and no acute distress Resp: Auscultation: clear to auscultation bilaterally Cardio: Rate: regular rate Rhythm: regular rhythm GI: Inspection: non-distended GI Palp: Yes Soft to palpation Skin: General skin exam: normal color Extrem: General: normal to inspection Psych: Mental Status: mental status grossly normal Assessment and Plan Assessment and plan (1) Positive colorectal cancer screening using Cologuard test: Code(s): R19.5 - Other fecal abnormalities Status: Acute Assessment and Plan: colonoscopy
--- NOTE | 2025-03-28 15:01 | S_PTH ---
PATIENT: Jackie Gray LOC: [facility] Chen#:[id number] AGE/SX: 64/F ROOM: RE03/28/[address]: Juan Manuel Horn MD : 1960 BED: DIS: 03/28/2025 SPEC #: [id number] RECD: 03/31/25 08:26 STATUS: MAAME REPino #: [id number] POLO: 03/28/25 15:[address]: Juan Manuel Horn DEPT: [facility] Surgical RECD BY: Geneva Jose ENTERED: 03/31/25 08:26 SP TYPE: Surgical OTHR DR: Yolanda June, MElly Tissues: A - Colon Polypectomy Procedures: Hematoxylin and Eosin Stain Gross and Microscopic Level 4
[2025-03-28 15:12] VITALS: BP 121/66; PULSE 92; RESP 16; O2SAT 100
[2025-03-28 15:22] VITALS: BP 138/84; PULSE 80; RESP 18; O2SAT 100
[2025-03-28 15:32] VITALS: BP 174/91; PULSE 79; RESP 20; O2SAT 100
== END 2025-03-28 15:40 | disposition home or self-care (01) ==
PROVIDERS: PCP Internal Medicine Infectious Disease; Visit Provider Internal Medicine Gastroenterology
PROC: 0DJD8ZZ Inspection of Lower Intestinal Tract, Via Natural or Artificial Opening Endoscopic (ICD-10-PCS; CPT 45378; principal; 2025-03-28 14:00)
DX: R19.5 Other fecal abnormalities (principal); K63.5 Polyp of colon; F17.210 Nicotine dependence, cigarettes, uncomplicated; F12.90 Cannabis use, unspecified, uncomplicated
CPT/HCPCS: 45385; 88305; J2003; J2704; J7120

== ENCOUNTER 2025-04-23 08:44 | Outpatient (CLI) | payer OTHER, SELFPAY ==
--- OUTSIDE RECORDS SUMMARY | 2025-04-23 09:11 | XMS_ITS | Data Portability ---
Author Organization JAYESH Sanders SIRadha Ca Address [address] [facility] [address] Assessment No assessment recorded. Plan of Treatment Reminders Order Date Submit Date Provider Last Modified By Organization Details Last Modified Time Details Appointments ANY 15 2025 02:30P M Yolanda June MD Not available Not available Not available Lab JESUS MANUEL (antinu clear antibod ies) screen, ifa, serum 2024 025 [place] [facility], [address] [place] [address], [address], [place], [address], 03/12/2025 15:11:37 inflamm ation panel, serum or plasma 2024 025 [facility], [address] [place] [address], [address], [place], [address], 03/12/2025 15:11:38 vitamin B12, serum 2024 025 [facility], [address] [place] [address], [address], [place], [address], 03/12/2025 15:11:38 TSH, ultra-s ensitiv e, serum 2024 025 [facility], [address] [facility], [address], [place], [address], 12/27/2024 07:13:29 CBC 2024 025 [facility], [address] [facility] [address], [address], [place], [address], 12/27/2024 07:13:30 lipid panel, serum 2024 025 [facility], [address] [facility] [address], [address], [place], [address], 12/27/2024 07:13:26 vitamin D, 25-hydr oxy, total, serum 2024 025 [facility], [address] [facility], [address], [place], [address], 12/27/2024 07:13:31 noninva sive colorec bety cancer DNA + occult blood screeni ng, QL, stool 2024 025 [place] [facility], [address], [address], [place], [address], 12/17/2024 19:04:57 basic metabol ic 1998 panel, serum or plasma 2024 025 [facility], [address] [facility] [address], [address], [place], [address], 12/27/2024 07:13:27 microal bumin/c reatini ne, mass ratio, urine 2024 025 [facility] [place], [address] [place] [address], [address], [place], [address], 04/10/2025 14:22:23 urinaly sis complet e, reflex culture 2024 025 [facility] [place], [address] [facility] [address], [address], [place], [address], 04/10/2025 14:22:[address] referra l - Periste nt hematur ia 2022 023 [facility], [address] [place], [address], 07/19/2023 09:29:39 Procedures None recorde d. Surgeries None recorde d. Imaging electro myogram + nerve conduct ion study - Finger tip numbnes s 2024 [facility]), [address] [place] [address], [phone], 04/04/2025 13:06:07 MAMMO, screeni ng, digital , bilater al 2024 [facility], [address] [place] [address], [id number], 04/04/2025 13:06:38 MAMMO, screeni ng, unilate ral - Hx. of right sided breast cancer 2024 [facility], [address] [place] [address], [id number], 04/04/2025 13:06:46 Medication Orders ergocal ciferol (vitami n D2) 1,250 mcg (50,000 unit) capsule 2024 [facility], [address] [place] [address], [id number], 04/10/2025 16:32:05 hydroch lorothi azide 25 mg tablet 2024 [facility], [address] [place] [address], [id number], 04/10/2025 16:32:04 losarta n 25 mg tablet 2024 [facility], [address] [place] [address], [id number], 04/10/2025 16:32:04 ergocal ciferol (vitami n D2) 1,250 mcg (50,000 unit) capsule 2024 025 o[facility]ao [facility], [address] [place] [address], [id number], 02/27/2025 11:04:10 hydroch lorothi azide 25 mg tablet 2024 025 [facility], [address] [place] [address], [id number], 02/27/2025 11:05:48 losarta n 25 mg tablet 2024 025 [facility], [address] [place] [address], [id number], 02/27/2025 10:40:39 Debrox 6.5 % ear drops [address] [facility], [address] [place] [address], [id number], 11/29/2024 10:59:56 ofloxac in 0.3 % ear drops [address] [facility], [address] [place] [address], [id number], 11/29/2024 10:59:46 losarta n 25 mg tablet [address] [facility], [address] [place] [address], [id number], 11/29/2024 10:59:43 hydroch lorothi azide 25 mg tablet [address] [facility], [address] [place] [address], [id number], 11/29/2024 10:59:50 flutica sone propion ate 50 mcg/act uation nasal spray,s uspensi on [address] [facility], [address] [place] [address] [place], [id number], 11/29/2024 10:59:53 loratad ine 10 mg tablet 2022 023 [email or web address], [address] [place] [address], [id number], 11/29/2024 10:59:48 Patient TargetsNo targets recorded. Patient Instructions Encounter Date Encounter Id Patient Instructions Last Modified By Organization Details Last Modified Time 01/18/2023 [id number] seasonal allergies: care instructions oajao Not available 01/18/2023 15:55:43 Fluticasone NS Loratadine Ofloxacin [facility] GI as referred Follow up in 6 months oajao Not available 01/18/2023 16:54:49 11/29/2024 [id number] mammogram: about this test oajao Not available 11/29/2024 11:15:36 grief (actual/anticipat ed): care instructions oajao Not available 11/29/2024 11:46:17 learning about healthy weight oajao Not available 11/29/2024 11:43:57 Labs MMG Restart Losartan and then HCTZ Stop smoking Cologuard Follow up as scheduled on 12/23/2024 oajao Not available 11/29/2024 11:46:34 12/23/2024 [id number] abnormal weight loss: care instructions oajao Not available 12/23/2024 18:03:21 Can she be referred her to a GI group elsewhere? Follow up in 3 months and PRN oajao Not available 12/23/2024 18:03:34 02/27/2025 [id number] eating healthy foods: care instructions oajao Not available 02/27/2025 11:17:54 neuropathic pain : care instructions oajao Not available 02/27/2025 11:04:09 Colonoscopy 03/28/2025 EMG/NCS Labs Follow up in 4-6 weeks (Post EMG/NCS) oajao Not available 02/27/2025 10:18:13 04/10/2025 [id number] eating healthy foods: care instructions oajao Not available 04/10/2025 16:02:20 EMG MMG as ordered Follow up in 6 months and PRN oajao Not available 04/10/2025 16:02:52 Reason for Referral Urologist Referral for Blood in urine Peristent hematuria Peristent hematuria Referring Physician: Yolanda June, Internal Medicine, Encounter Date: 01/18/2023 Results Created Date Observation Date Name Description Value Unit Range Abnormal Flag Note LastModifiedBy Organization Detail LastModifiedTime 01/03/2001/02/2023 URINA LYSIS , ROUTI NE specific gravity 1.020 1.001- 1.035 Not Available [facility] Department [address] [place], [address], 01/03/2023 06:15:17 01/03/2001/02/2023 URINA LYSIS , ROUTI NE pH 6.0 5.0-7. 0 Not Available [facility] Department [address], [place], [address], 01/03/2023 06:15:17 01/03/2001/02/2023 URINA LYSIS , ROUTI NE urine-color YELLOW yellow Not Available [facility] Department [address], [place], [address], 01/03/2023 06:15:17 01/03/2001/02/2023 URINA LYSIS , ROUTI NE appearance CLEAR Not Available [facility] Department [address], [place], [address], 01/03/2023 06:15:17 01/03/2001/02/2023 URINA LYSIS , ROUTI NE WBC esterase COMMEN T NEGAT SANDY Not Available [facility] Department [address] [place], [address], 01/03/2023 06:15:17 01/03/2001/02/2023 URINA LYSIS , ROUTI NE protein COMMEN T NEGAT SANDY Not Available [facility] Department [address] [place], [address], 01/03/2023 06:15:17 01/03/20 23 01/02/2023 URINA LYSIS , ROUTI NE glucose COMMEN T NEGAT SANDY Not Available [facility] Department [address] [place], [address], 01/03/2023 06:15:17 01/03/20 23 01/02/2023 URINA LYSIS , ROUTI NE ketones COMMEN T NEGAT SANDY Not Available [facility] Department [address] [place], [address], 01/03/2023 06:15:17 01/03/20 23 01/02/2023 URINA LYSIS , ROUTI NE occult blood SEE BELOW: niki/u L negati ve abnormal TRACE -INTA CT Not Available [facility] Department [address] [place], [address], 01/03/2023 06:15:17 01/03/20 23 01/02/2023 URINA LYSIS , ROUTI NE bilirubin COMMEN T negati ve NEGAT SANDY Not Available [facility] Department [address] [place], [address], 01/03/2023 06:15:17 01/03/20 23 01/02/2023 URINA LYSIS , ROUTI NE urobilinogen ,semi-qn 0.2 eu/dL <=1.0 Not Available [facility] Department [address] [place], [address], 01/03/2023 06:15:17 01/03/20 23 01/02/2023 URINA LYSIS , ROUTI NE nitrite, urine COMMEN T negati ve NEGAT SANDY Not Available [facility] Department [address] [place], [address], 01/03/2023 06:15:17 01/03/20 23 01/02/2023 MICRO SCOPI C EXAMI NATIO N WBC COMMEN T NONE SEEN Not Available [facility] Department [address] [place], [address], 01/03/2023 06:15:16 01/03/20 23 01/02/2023 MICRO SCOPI C EXAMI NATIO N RBC 0-2 Not Available [facility] Department [address] [place], [address], 01/03/2023 06:15:16 01/03/20 23 01/02/2023 MICRO SCOPI C EXAMI NATIO N epithelial cells (non renal) COMMEN T OCCAS IONAL Not Available [facility] Department [address] [facility], [place], [address], 01/03/2023 06:15:16 01/03/20 23 01/02/2023 MICRO SCOPI C EXAMI NATIO N bacteria COMMEN T NONE SEEN Not Available [facility] Department [address] [place], [address], 01/03/2023 06:15:16 12/12/19 25 12/11/2024 COLOG UARD [...] is negat sandy. TEST DESCR IPTIO N: [place] site algor ithmi c aníbal sis of stool DNA-b leslie davalos with hemog lobin immun oassa y. Quant itati ve value s of indiv idual bioma rkers are not repor table and are not assoc iated with indiv idual bioma rker resul t refer ence range s. Colog uard is inten ded for color ectal cance r scree alnia of adult s of eithe r sex, 45 years or older , who are at [facility] for color ectal cance r (CRC) . Colog uard has been appro josephine for use by the U.[place]. FDA. The perfo rmanc e of Colog uard was estab lishe d in a cross secti onal study of [facility] adult s aged 50-84 . Colog uard perfo rmanc e in patie nts ages 45 to 49 years was estim ated by sub-g roup aníbal sis of near- age group s. Colon oscop ies perfo rmed for a posit sandy resul t may find as the most clini marcelo signi fican t lesio n: color ectal cance r [...] study of 0 indiv idual s at [facility] risk for color ectal cance r who were scree nohemi with both Colog uard and colon oscop y. (Jessica Alvarenga et al, N Engl J Med 2014; 370(1 [...] d can be acces sed at the [facility] locat ion: www.e xactl abs.c om/re sults . Addit ional descr iptio n of the Colog uard test proce ss, warni ngs and preca ution s can be found at www.chun valero.chun om. Not Available [facility] [address], [place], [address], 12/17/2024 19:04:57 12/27/19 25 12/27/2024 LIPID PANEL cholesterol, total 205 mg/dL 100-19 9 above high normal Not Available [facility] ([facility]) [address] [place], [address], 12/27/2024 07:13:26 12/27/19 25 12/27/2024 LIPID PANEL triglyceride s 47 mg/dL 0-149 Not Available [facility] ([facility]) [address] [place], [address], 12/27/2024 07:13:26 12/27/19 25 12/27/2024 LIPID PANEL HDL cholesterol 68 mg/dL >39 Not Available [facility]) [address] [place], [address], 12/27/2024 07:13:26 12/27/19 25 12/27/2024 LIPID PANEL VLDL cholesterol diego 9 mg/dL 5-40 Not Available [facility] ([facility]) [address] [place], [address], 12/27/2024 07:13:26 12/27/19 25 12/27/2024 LIPID PANEL LDL chol calc ([facility]) 128 mg/dL 0-99 above high normal Not Available [facility] ([facility]) [address] [place], [address], 12/27/2024 07:13:26 12/27/19 25 12/27/2024 BASIC METAB OLIC PANEL (7) glucose 80 mg/dL 70-99 Not Available [facility] ([facility]) [address] [place], [address], 12/27/2024 07:13:27 12/27/19 25 12/27/2024 BASIC METAB OLIC PANEL (7) BUN 15 mg/dL 8-27 Not Available [facility] ([facility]) [address] [place], [address], 12/27/2024 07:13:27 12/27/19 25 12/27/2024 BASIC METAB OLIC PANEL (7) creatinine 0.76 mg/dL 0.57-1 .00 Not Available [facility] ([facility]) [address] [facility] [place], [address], 12/27/2024 07:13:27 12/27/19 25 12/27/2024 BASIC METAB OLIC PANEL (7) eGFR 88 mL/mi n/1.7 3 >59 Not Available [facility] ([facility]) [address] [facility] [place], [address], 12/27/2024 07:13:27 12/27/19 25 12/27/2024 BASIC METAB OLIC PANEL (7) BUN/creatini ne ratio 20 12-28 Not Available [facility] ([facility]) [address] [place], [address], 12/27/2024 07:13:27 12/27/19 25 12/27/2024 BASIC METAB OLIC PANEL (7) sodium 138 mmol/ L 134-14 4 Not Available [facility] ([facility]) [address] [place], [address], 12/27/2024 07:13:27 12/27/19 25 12/27/2024 BASIC METAB OLIC PANEL (7) potassium 4.2 mmol/ L 3.5-5. 2 Not Available [facility] ([facility]) [address] [place], [address], 12/27/2024 07:13:27 12/27/19 25 12/27/2024 BASIC METAB OLIC PANEL (7) chloride 99 mmol/ L 96-106 Not Available [facility] ([facility]) [address] [facility] [place], [address], 12/27/2024 07:13:27 12/27/1912/27/2024 BASIC METAB OLIC PANEL (7) carbon dioxide, total 22 mmol/ L Not Available [facility] ([facility]) [address] [facility], [place], [address], 12/27/2024 07:13:27 12/27/1912/26/2024 UNABL E TO VOID unable to void COMMEN T Patie nt unabl e to void. Urine to be colle cted at a later date. Not Available [facility] ([facility]) [address] [place], [address], 12/27/2024 07:13:28 12/27/19 25 12/27/2024 TSH TSH 0.530 uIU/m L 0.450- 4.500 Not Available [facility] ([facility]) [address] [place], [address], 12/27/2024 07:13:29 12/27/19 25 12/26/2024 CBC, PLATE LET, NO DIFFE RENTI AL WBC 8.1 x10e3 /uL 3.4-10 .8 Not Available [facility] ([facility]) [address] [place], [address], 12/27/2024 07:13:30 12/27/19 25 12/26/2024 CBC, PLATE LET, NO DIFFE RENTI AL RBC 4.19 x10e6 /uL 3.77-5 .28 Not Available [facility] ([facility]) [address] [place], [address], 12/27/2024 07:13:30 12/27/19 25 12/26/2024 CBC, PLATE LET, NO DIFFE RENTI AL hemoglobin 14.0 g/dL 11.1-1 5.9 Not Available [facility] ([facility]) [address] [place], [address], 12/27/2024 07:13:30 12/27/1912/26/2024 CBC, PLATE LET, NO DIFFE RENTI AL hematocrit 42.3 % 34.0-4 6.6 Not Available [facility] ([facility]) [address] [place], [address], 12/27/2024 07:13:30 12/27/1912/26/2024 CBC, PLATE LET, NO DIFFE RENTI AL MCV 101 fL 79-97 above high normal Not Available [facility] ([facility]) [address] [place], [address], 12/27/2024 07:13:30 12/27/1912/26/2024 CBC, PLATE LET, NO DIFFE RENTI AL MCH 33.4 pg 26.6-3 3.0 above high normal Not Available [facility] ([facility]) [address] [place], [address], 12/27/2024 07:13:30 12/27/1912/26/2024 CBC, PLATE LET, NO DIFFE RENTI AL MCHC 33.1 g/dL 31.5-3 5.7 Not Available [facility] ([facility]) [address] [place], [address], 12/27/2024 07:13:30 12/27/1912/26/2024 CBC, PLATE LET, NO DIFFE RENTI AL RDW 12.5 % 11.7-1 5.4 Not Available [facility] ([facility]) [address] [place], [address], 12/27/2024 07:13:30 12/27/1912/26/2024 CBC, PLATE LET, NO DIFFE RENTI AL platelets 294 x10e3 /uL 150-45 0 Not Available [facility] ([facility]) [address] [place], [address], 12/27/2024 07:13:30 12/27/19 25 12/27/2024 VITAM IN [...] 1. IOM (Inst itute of Medic ine). 2009. Dieta ry refer ence intak es for calci um and D. Shelby monique [place]: The [facility] Press . 2. Mahin nixon [place], Brian atkinson [place], Gianna off-F errar i VALENTINE, et al. Evalu ation , treat ment, and preve ntion of vitam in D defic iency : an Endoc rine Socie ty clini diego pract ice guide line. JCEM. 2010; 96(7) :1911 -30. Not Available [facility] ([facility]) [address] [facility], [place], [address], 12/27/2024 07:13:31 03/07/20 25 03/12/2025 JESUS MANUEL BY IFA RFX TITER /FANY BLAS JESUS MANUEL by ifa rfx titer/patter n NEGATI VE Negat sandy <1:80 Borde rline 1:80 Posit sandy >1:80 [facility] nomen clatchristopher re: AC-0 For more infor denisse oliver about Hep-2 cell patte rns use ANAiqra ttern s.org , the offic ial marbini te for the Inter natio nal Conse nsus on Antin uclea r Antib rachel (JESUS MANUEL) Patte rns ([facility] ). Not Available [facility] ([facility]) [address] [facility], [place], [address], 03/12/2025 15:11:37 03/07/20 25 03/08/2025 ESR-W ES+CR P sedimentatio n rate-westerg deejay 8 mm/HR 0-40 Not Available [facility] ([facility]) [address] [facility], [place], [address], 03/12/2025 15:11:38 03/07/20 25 03/08/2025 ESR-W ES+CR P C-reactive protein, quant 1 mg/L 0-10 Not Available [facility] ([facility]) [address] [facility], [place], [address], 03/12/2025 15:11:38 03/07/20 25 03/08/2025 VITAM IN B12 vitamin B12 433 pg/mL 232-12 45 Not Available [facility] ([facility]) [address] [place], [address], 03/12/2025 15:11:38 Result Notes None recorded. Problems Name Problem SNOMED Code Status Onset Date Resolution Date Notes Provider Name and Address Organization Details Recorded Time History of total hysterectom y 685691140 Active 2022 Yolanda June MD Attn: Aniya campos,[address] [place], [address], [facility] 3 10:41:03 History of right mastectomy 915951538 Active 2022 Yolanda June MD Attn: Aniya campos,[address] [place], [address], [place] [facility] 3 10:41:04 History of malignant neoplasm of breast 189802527 Active 2022 Yolanda June MD Attn: Aniya campos,[address] [place], [address], [facility] - [facility] 3 10:48:53 Disorder of lipid metabolism 857109284 Active 2022 Yolanda June MD Attn: Aniya campos,[address], [place], [address], [place] [facility] 3 11:39:30 Benign essential hypertensio n 0851096 Active 2022 Yolanda June MD Attn: Aniya campos,[address] [facility], [place], [address], [place] [facility] 3 11:39:36 Blood in urine 87504217 Active 2022 Yolanda June MD Attn: Aniya campos,[address] [facility], [place], [address], [place] [facility] 3 13:43:36 Impacted cerumen of bilateral ears 1607257093112 108 Active 2022 Yolanda June MD Attn: Aniya campos,[address] [facility], [place], [address], [place] [facility] 3 15:02:14 Simple renal cyst 08606391 Active 2022 Yolanda June MD Attn: Aniya campos,[address] [facility], [place], [address], [place] [facility] 3 15:03:24 Colorectal cancer detected by DNA-based stool screening 414431082 Active 2024 Yoladna June MD Attn: Aniya campos,[address] [facility], [place], [address], [place] [facility] 5 09:01:29 Hypercholes terolemia 56330808 Active 2024 Yolanda June MD Attn: Aniya campos,[address] [facility], [place], [address], [place] [facility] 5 10:18:45 Problem Notes None recorded. Procedures Surgical History Date Name Laterality Status Provider Name and Address Organization Details Recorded Time 03/28/20 25 colonoscopy completed Yolanda June MD Attn: Accounting,[address] [facility], [place], [address], [place] [facility] 04/03/2025 08:21:00 01/03/20 23 Generic Procedure completed Yolanda June MD Attn: Accounting,[address], [place], [address], [facility] 01/02/2023 15:04:14 excision of right breast completed Harika Merida MA [facility] 09/28/2022 10:33:35 Partial hysterectomy completed Harika Merida MA [facility] 09/28/2022 10:33:47 Imaging Results None recorded. Procedure [...] Available Not Available losartan 25 mg tablet Take 1 tablet every day by oral route as directed for 90 days, for HTN. 2024 active Not Available Not Available Not Avai lable hydrochloro thiazide 25 mg tablet Take 1 tablet every day by oral route as directed for 90 days, for HTN. 2024 active Not Available Not Available Not Avai lable gabapentin 100 mg capsule active pt last seen on 04/23 Not Available Not Available Not Available ergocalcife rol (vitamin D2) 1,250 mcg (50,000 unit) capsule Take 1 capsule every week by oral route as directed for 84 days. 2024 active Not Available Not Available Not Avai lable fluticasone propionate 50 mcg/actuati on nasal spray,suspe [...] /min Yolanda June MD Attn: Accounting,[address] [facility], [place], [address], [facility] 11/29/2024 11:44:06 Date Recorded Body weight Body temperature Heart rate Oxygen saturation Oxygen saturation in Arterial blood by Pulse oximetry Systolic And Diastolic Provider Name and Address Organization Details Last Updated DateTime 5 [address].0 7 g 97.8 [degF] 83 /min 100 % 100 % 160/92 mm[Hg] Karina Wellingtonlure [facility] 5 11:04:12 Date Recorded Body height Body mass index (BMI) Body weight Heart rate Oxygen saturation Oxygen saturation in Arterial blood by Pulse oximetry Respiratory rate Body temperature Systolic And Diastolic Provider Name and Address Organization Details Last Updated DateTime 5 167.64 cm 18.8 kg/m2 30569.8 7 g 90 /min 96 % 96 % 12 /min 98.9 [degF] 134/78 mm[Hg] Harika Merida MA [facility] 5 15:42:01 Date Recorded Body height Body mass index (BMI) Body weight Heart rate Oxygen saturation Oxygen saturation in Arterial blood by Pulse oximetry Systolic And Diastolic Provider Name and Address Organization Details Last Updated DateTime 3 167.64 cm 20 kg/m2 54577.4 5 g 88 /min 99 % 99 % 132/80 mm[Hg] Vandana Garcia MA [facility] 3 15:18:19 Date Recorded Body height Body mass index (BMI) Body weight Heart rate Oxygen saturation Oxygen saturation in Arterial blood by Pulse oximetry Respiratory rate Body temperature Systolic And Diastolic Provider Name and Address Organization Details Last Updated DateTime 5 167.64 cm 18.4 kg/m2 82847.4 5 g 68 /min 100 % 100 % 14 /min 98.1 [degF] 130/80 mm[Hg] Harika Merida MA [facility] 5 09:40:50 Date Recorded Body height Body mass index (BMI) Body weight Oxygen saturation Oxygen saturation in Arterial blood by Pulse oximetry Heart rate Respiratory rate Systolic And Diastolic Provider Name and Address Organization Details Last Updated DateTime 167.64 cm 18.8 kg/m2 52470.4 3 g 100 % 100 % 74 /min 14 /min 126/80 mm[Hg] Harika Merida [place] [facility] 15:47:04 Social History Question Answer Notes LastModified by Organizat ion Details LastModified Time Tobacco Smoking Status Current Every Day Smoker Harika Merida MA null, [facility] 09/28/2022 10:32:23 How Many Years Have [...] Date Of Your Most Recent Tobacco Screening? 04/10/2025 Information not available 04/10/2025 What Is Your Current Pack Years? 20-29packyears [...] What Date Was Tobacco Cessation Counseling Provided? 04/10/2025 Information not available 04/10/2025 How Many Years Have You Smoked Tobacco? [...] anxious, or unable to sleep at night)? [id number] Information not available 11/29/2024 Family History Relationship Description Onset Age of this Age Resolved Age Notes LastModified by Organization Details LastModified Time Brother Hypertensive disorder oajao Not available 2022 10:46:03 Medical History Condition Response Coronary Artery Disease N Other N Atrial Fibrillation N High Blood Pressure Y Depression N COPD N Blood Clots N Anxiety Disorder N Muscle, Joint, or Bone Problems N Acid Reflux (GERD) N Cancer Y Stroke N High Cholesterol N Liver Disease N Headaches N Kidney or Bladder Problems N Thyroid Problems N GI Problems N Skin Problems N Anemia N Heart Attack (PR) N Diabetes N Seizures/Epilepsy N Asthma N Allergies N Hepatitis N Heart Failure N Osteoporosis N Gynecological History Statement/Question Response Current Control Method Hysterectom y Obstetrics History GPAL:G 0 P 0 0 0 0 Immunizations Vaccine Type Date Status Note Provider Nam e and Address Organization Details Recorded Time COVID-19, mRNA, LNP-S, PF, 30 mcg/0.3 mL dose 2 completed Yolanda June MD Attn: Accounting,[address] [place], [address], [place] [facility] 09/28/2022 10:37:44 COVID-19, mRNA, LNP-S, PF, 10 mcg/0.2 mL dose, florin-sucrose 1 completed Yolanda June MD Attn: Accounting[address] [place], [address], [place] [facility] 10/07/2022 11:41:51 COVID-19, mRNA, LNP-S, PF, 10 mcg/0.2 mL dose, florin-sucrose 1 completed Yolanda June MD Attn: Accounting,[address] [facility], [place], [address], [place] [facility] 09/28/2022 10:44:49 influenza, unspecified formulation 2 completed Yolanda June MD Attn: Accounting,[address] [facility], [place], [address], [place] [facility] 09/28/2022 10:45:18 Tdap 3 completed Harika Merida [place] null, [place] [facility] 09/28/2022 11:50:32 Pneumococcal conjugate PCV20, polysaccharide [id number] conjugate, adjuvant, PF 5 completed Karina Narvaez null, [place] [facility] 11/29/2024 17:03:20 Past Encounters Encounter ID Performer Location Encounter Start Date Encounter Closed Date Diagnosis/Indication Diagnosis SNOMED-CT Code Diagnosis ICD10 Code Diagnosis IMO Codes Diagnosis Note [id number] Yolanda June MD [facility] (Adult Med) [address] [place] [phone] 0 09/28/2022 09:58:40 09/29/2022 14:12:15 Adult health examination 508026993 Z00.01 Benign ess ential hypertension 9980750 I10 History of total hysterectomy 544761997 Z90.710 History of right mastectomy 824588771 Z90.11 Immunization advised 310 428125 Z71.9 History of malignant neoplasm of breast 273792200 Z85.3 Normal grief reaction 27 3585268 F43.20 Nicotine dependence 5629 4008 F17.200 Screening for malignant neoplasm of breast 839428190 Z12.39 Screening for malignant neoplasm of colon 815378243 Z12.11 Impacted c erumen of bilateral ears 6680946614 328787 H61.23 [id number] Yolanda June MD [facility] (Adult Med) [address] [place] [address] [phone] 0 10/07/2022 11:13:14 10/10/2022 13:51:46 Disorder of lipid metabolism 656480935 E78.9 Benign ess ential hypertension 7884560 I10 Continue HCTZStart Losartan, side effects were discussed Blood in urine 12757847 R31.9 DiscussedA ddendumUAU S [id number] MD [facility] (Adult Med) [address] [place] [address] 32180-222 0 01/18/2023 15:07:20 01/19/2023 14:31:26 Blood in urine 51579715 R31.9 Persistent hematuria, may be from her cystsUrolo gy OV 01/02/2023U S renal cystsRepea t UA OV 10/07/2022 iscussedAd dendumUAUS Seasonal a llergic rhinitis 564722287 J30.2 Otitis externa 8268516 H 60.92 Impacted c erumen of bilateral ears 6406154589 933664 H61.23 Benign ess ential hypertension 8684620 I10 Stable on HCTZ and Losartan. [id number] MD L[facility]to June (Adult Med) [address] [place] [address] [phone] 0 01/02/2023 14:20:15 01/04/2023 10:54:09 Blood in urine 95970244 R31.9 renal cystsRepea t UA OV 10/07/2022 iscussedAd dendumUAUS Screening for malignant neoplasm of colon 908734193 Z12.11 Impacted c erumen of bilateral ears 7257023836 765263 H61.23 Simple renal cyst 917047 09 N28.1 [id number] MD [facility] June (Adult Med) [address] [place] [address] [phone] 0 11/29/2024 10:48:08 12/02/2024 10:11:50 Blood in urine 80649613 R31.9 Recheck OV 01/18/2023 ersistent hematuria, may be from her cystsUrolo gy OV 01/02/2023U S renal cystsRepea t UA OV 10/07/2022 iscussedAd dendumUAUS Benign ess ential hypertension 4058839 I10 Restart Losartan, then HCTZ, side effects were discussed including but not limited to headaches and dizziness. OV 01/18/2023 table on HCTZ and Losartan. Screening mammography 24 003065 Z12.31 5761649 Requires v accination against Streptococcus pneumoniae 4724702867 Z91.89 21738259 Screening for malignant neoplasm of colon 660840761 Z12.11 181801 Adult heal th examination 475084245 Z00.01 3721873 Body mass index less than 20 293236987 Z68.1 02608654 Grief finding 934944246 F43.20 [id number] MD [facility] June (Adult Med) [address] [place] [address] 48049-966 0 12/23/2024 15:32:00 12/24/2024 13:15:34 Benign essential hypertension 6259714 I10 Stable OV 11/29/2024Re start Losartan, then HCTZ, side effects were discussed including but not limited to headaches and dizziness. OV 01/18/2023 table on HCTZ and Losartan. Colorectal cancer detected by DNA-based stool screening 693536184 R19.5 80012790 DiscussedG I Note from 12/18/2024 ologuard positive 12/11/2024G I Weight decreased 7833524 01 R63.4 64920 Possibly due to a decrease in her intake.Per iactin? [id number] MD [facility] June (Adult Med) [address] [place] [address] [phone] 0 02/27/2025 09:30:53 02/28/2025 10:50:46 Benign essential hypertension 0156195 I10 Stable on Losartan 25 mg and HCTZ 25 mg Colorectal cancer detected by DNA-based stool screening 532346004 R19.5 99556237 Her colonoscop y has been reschedule d OV 12/23/2024D iscussedGI Note from 12/18/2024 ologuard positive 12/11/2024G I Weight decreased 9569050 01 R63.4 86999 Colonoscop yHer labs do not explain her weight loss.-3 lbsShe will need imaging if her colonoscop y is normal OV 12/23/2024P ossibly due to a decrease in her intake.Per iactin? Vitamin D deficiency 347 03213 E55.9 27792 Start weekly Vitamin D Raynaud's phenomenon 266 488946 I73.00 60247773 Neuropathy 221486101 G62 .9 16991 Hypercholesterolemia 136 38435 E78.00 34117 Discussed Decreased body mass index 6204416 Z68.0 9009626504 Underweight 148912117 R6 3.6 [id number] MD [facility] June (Adult Med) [address] [place] [address] 44162-511 0 04/10/2025 15:40:14 04/14/2025 12:00:57 Benign essential hypertension 5049353 I10 Stable on Losartan 25 mg and HCTZ 25 mg Vitamin D deficiency 347 24616 E55.9 65599 On Vitamin D Decreased body mass index 0605042 Z68.6 8646840152 Underweight 673527576 R6 3.6 Sessile se rrated polyp of colon 7871887893 D12.6 2487431580 Health Concerns Section Related Observation LastModified by Organization Detai ls LastModified Time None Recorded Concern Status LastModified by Organization Details LastModified Time None Recorded Advance Directives Directive None Recorded Payers Insurance Date Sequence Insurance Name Policy Number Policy Aguilar Covered Member ID Aguilar Member ID Guarantor Name 04/14/2025 1 [facility] [id number] Jackie Gray [id number] Jackie Gray 04/10/2025 2 [facility] (MEDICARE REPLACEMENT/AD VANTAGE - HMO) Jackie Gray [id number] Jackie Gray 04/10/2025 2 [facility] (MEDICARE REPLACEMENT/AD VANTAGE - HMO) Jackie Gray [id number] Jackie Gray 04/10/2025 1 [facility] Jackie Gray [id number] Jackie Gray 01/02/2023 1 *SELF PAY* Aryan Gray 01/02/2023 SLIDING FEE SCHEDULE - DISCOUNT Jackie Gray 04/10/2025 1 [facility] PRIOR TO 01/24/2025 (MEDICAID REPLACEMENT - HMO) [id number] Jackie Gray [id number] Jackie Gray Notes Date Note Type Note [...] stones. Yolanda June MD Attn: Accounting,[address] [facility], [place], [address], [facility] 01/18/2023 16:55:28 5 text/html Hypertension F/UReported by [...] otherwise well. Yolanda June MD Attn: Accounting,[address] [facility], [place], [address], [facility] 11/29/2024 11:47:22 5 text/html Hypertension F/UReported by [...] February, Yolanda June MD Attn: Accounting,[address] [facility], [place], [address], [facility] 12/23/2024 18:04:05 5 text/html ROS as noted in the HPI Numbness, tingling in the fingers because I work in the coldI have issues with my Sciatica Ms Gray complains of tingling and numbness in the [...] was previously on Tramadol and Gabapentin. Yolanda Juen MD Attn: Accounting[address] [place], [address], [facility] 02/27/2025 11:18:29 5 text/html ROS as noted in the HPI Five yearsMy hands feel a whole lot different Ms Gray had a colonoscopy, she will need a repeat study in 5 years. Her upper extremity symptoms feel much better since she changed her role at work Yolanda June MD Attn: Accounting,[address] [facility], [place], [address], [facility] 04/10/2025 18:11:18 OBGyn Episode No OBEpisode recorded.
--- OUTSIDE RECORDS SUMMARY | 2025-04-23 09:11 | XMS_ITS | Clinical Summary ---
Author Organization [facility] [employer] Address [address] [place] [address] Care Team Providers Care Consumer Affairs Manager Name Role Phone Renita Sharma MD Primary Care Provider [phone] Source Comments [facility],non-owned Affiliates and Associated Physician Practices is amultiple site organization consisting of ambulatory clinics and hospital sitesin [place], [place], [place] and [place]. This disclosure is being madepursuant to the Care Everywhere program and may not contain all information available regarding this patient. 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 [employer] Gender Identity Not on file Sexual Orientation [...] 09/24/2011 ZOSTER VACCINE (1 of 2) 09/24/2011 PAP SMEAR 05/15/2012 05/15/2009 DEPRESSION SCREENING 06/26/2024 COVID-19 VACCINE (1 - [...] on patient's age to complete this topic Procedures Procedure Name Priority Date/Time Associated Diagnosis Comments PAP SMEAR 1 SLIDE Routine 05/15/2009 from Last 3 Months or Most Recently Relevant to Health Maintenance Results * PAP SMEAR 1 SLIDE (05/15/2009) Other (qualifier value) 05/15/2009 Narrative [facility] - 06/04/2009 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 us Historical Provider LAB - PATHOLOGY/CYTOLOGY ORDERABLES Final Result [facility] [address] [place] [address], [facility] from Last 3 Months or Most Recently Relevant to Health Maintenance Insurance SELF PAY NO INSURANCE Member Subscriber Plan / Payer (Ef fective for All Dates) Name:Jackie Gray Member ID:Not on file Relation to Subscriber:Not on file Name:JACKIE GRAY Subscriber ID:Not on file (Home) Address: [address] [place], [place] [address] [address] Payer ID:Not on file Group ID:Not on file Type:Self Pay Address: [facility] Care Teams Consumer Affairs Manager Relationship Specialty Start Date End Date Renita Sharma MD [address] [address] PCP - General 05/10/20
--- NOTE | 2025-04-23 11:15 | NEURO_ITS ---
Impression: # Complains of numbness of hands. ? # Mild evolving Carpal Tunnel Syndrome. ? # Mild left ulnar neuropathy across the elbow. ? # Normal needle/EMG exam. Nerve Conduction Studies ?Stim Site NR Peak (ms) P-T Amp (?V) Site1 Site2 Delta-P (ms) Dist (cm) Genaro (m/s) Left Median Anti Sensory (2-3nd Digit) Wrist ? 3.6 67.5 Wrist 2-3nd Digit 3.6 14.0 39 Wrist ? 3.9 55.2 Wrist 2-3nd Digit 3.6 14.0 39 Right Median Anti Sensory (2-3nd Digit) Wrist ? 3.7 43.1 Wrist 2-3nd Digit 3.7 14.0 38 Wrist ? 3.8 66.0 Wrist 2-3nd Digit 3.7 14.0 38 Left Radial Anti Sensory (Base 1st Digit) Wrist ? 2.3 52.2 Wrist Base 1st Digit 2.3 0.0 Right Radial Anti Sensory (Base 1st Digit) Wrist ? 2.5 34.2 Wrist Base 1st Digit 2.5 0.0 Left Ulnar Anti Sensory (5th Digit) Wrist ? 3.2 65.6 Wrist 5th Digit 3.2 14.0 44 Right Ulnar Anti Sensory (5th Digit) Wrist ? 3.3 53.6 Wrist 5th Digit 3.3 14.0 42 ?Stim Site NR Onset (ms) O-P Amp (mV) Site1 Site2 Delta-0 (ms) Dist (cm) Genaro (m/s) Left Median Motor (Abd Poll Brev) Wrist ? 4.1 2.1 Elbow Wrist 5.3 30.0 57 Elbow ? 9.4 6.3 Right Median Motor (Abd Poll Brev) Wrist ? 3.6 4.4 Elbow Wrist 5.2 29.0 56 Elbow ? 8.8 8.5 Left Ulnar Motor (Abd Dig Minimi) Wrist ? 2.6 7.7 A Elbow Wrist 5.8 30.0 52 A Elbow ? 8.4 9.8 B Elbow Wrist 3.7 22.0 59 B Elbow ? 6.3 10.7 Right Ulnar Motor (Abd Dig Minimi) Wrist ? 2.9 8.7 A Elbow Wrist 5.5 30.0 55 A Elbow ? 8.4 7.7 B Elbow Wrist 3.8 22.0 58 B Elbow ? 6.7 6.0 F Wave Studies ?NR F-Lat (ms) L-R F-Lat (ms) Left Median (Mrkrs) (Abd Poll Brev) ? 28.57 0.26 Right Median (Mrkrs) (Abd Poll Brev) ? 28.83 0.26 Left Ulnar (Mrkrs) (Abd Dig Min) ? 29.17 0.57 Right Ulnar (Mrkrs) (Abd Dig Min) ? 28.59 0.57 Electromyography ?Side Muscle Nerve Root Ins Act Fibs Amp Dur Recrt Comment Right 1stDorInt Ulnar C8-T1 Nml Nml Nml Nml Nml Right Ext Indicis Radial (Post Int) C7-8 Nml Nml Nml Nml Nml Right Ext Digitorum Radial (Post Int) C7-8 Nml Nml Nml Nml Nml Right BrachioRad Radial C5-6 Nml Nml Nml Nml Nml Right PronatorTeres Median C6-7 Nml Nml Nml Nml Nml Right Abd Poll Brev Median C8-T1 Nml Nml Nml Nml Nml Right ABD Dig Min Ulnar C8-T1 Nml Nml Nml Nml Nml Right FlexPolLong Median (Ant Int) C7-8 Nml Nml Nml Nml Nml Right Abd Poll Long Radial (Post Int) C7-8 Nml Nml Nml Nml Nml Left 1stDorInt Ulnar C8-T1 Nml Nml Nml Nml Nml Left Ext Indicis Radial (Post Int) C7-8 Nml Nml Nml Nml Nml Left Ext Digitorum Radial (Post Int) C7-8 Nml Nml Nml Nml Nml Left BrachioRad Radial C5-6 Nml Nml Nml Nml Nml Left PronatorTeres Median C6-7 Nml Nml Nml Nml Nml Left Abd Poll Brev Median C8-T1 Nml Nml Nml Nml Nml Left ABD Dig Min Ulnar C8-T1 Nml Nml Nml Nml Nml Left FlexPolLong Median (Ant Int) C7-8 Nml Nml Nml Nml Nml Left Abd Poll Long Radial (Post Int) C7-8 Nml Nml Nml Nml Nml
== END 2025-04-23 08:45 | disposition home or self-care (01) ==
PROVIDERS: PCP Internal Medicine Infectious Disease; Visit Provider Internal Medicine Infectious Disease
DX: G62.9 Polyneuropathy, unspecified (principal); G56.03 Carpal tunnel syndrome, bilateral upper limbs; G56.22 Lesion of ulnar nerve, left upper limb
CPT/HCPCS: 95886; 95911

== ENCOUNTER 2025-05-23 10:11 | Outpatient (CLI) | payer OTHER, SELFPAY ==
--- NOTE | ~2025-05-23 | MM_ITS ---
EXAMINATION: MM screening burton LT w kathryn HISTORY: Screening. TECHNIQUE: Craniocaudal and mediolateral oblique 3-D tomosynthesis images were obtained and synthetic 2-D images were generated. CAD analysis was submitted and interpreted. COMPARISON: None available. BREAST PARENCHYMAL COMPOSITION: Dense: The breast tissue is heterogeneously dense, which may obscure small masses. FINDINGS: No suspicious masses are seen. There are fine and linear, branching calcifications are seen in at least a segmental versus possibly regional area of tissue in the 5 to 6:00 position, rather posterior in location. These calcifications follow the ductal system. All of the calcifications are not imaged, given posterior location. No unexplained architectural distortion is seen. There are no skin or nipple abnormalities identified. There is no adenopathy seen on the images submitted. IMPRESSION: Highly suspicious calcifications for which stereotactic/tomographic guided core biopsy is recommended. BI-RADS: 0 - Incomplete - needs additional imaging evaluation and/or prior mammograms for comparison. Reviewed, dictated and finalized at location A. ETING SUPPORT COORDINATOR IMPRESSION: Highly suspicious calcifications for which stereotactic/tomographic guided core biopsy is recommended. BI-RADS: 0 - Incomplete - needs additional imaging evaluation and/or prior mamm ograms for comparison.
--- OUTSIDE RECORDS SUMMARY | 2025-05-23 10:16 | XMS_ITS | Data Portability ---
Author Organization JAYESH MAJORRadha Address [address] [facility] [place] [place] [address] Assessment No assessment recorded. Plan of Treatment Reminders Order Date Submit Date Provider Last Modified By Organization Details Last Modified Time Details Appointments ANY 15 2025 02:30P M Yolanda June MD Not available Not available Not available Lab JESUS MANUEL (antinucl ear antibodie s) screen, ifa, serum 2024 025 [facility], [address] [place] [address], [address], [place], [address], 03/12/2025 15:11:37 inflammat ion panel, serum or plasma 2024 025 [facility], [address] [place] [address], [address], [place], [address], 03/12/2025 15:11:38 vitamin B12, serum 2024 025 [facility], [address] [place] [address], [address], [place], [address], 03/12/2025 15:11:38 TSH, ultra-sen sitive, serum 2024 025 [facility], [address] [facility], [address], [place], [address], 12/27/2024 07:13:29 CBC 2024 025 [facility], [address], [address], [place], [address], 12/27/2024 07:13:30 lipid panel, serum 2024 025 [facility], [address], [address], [place], [address], 12/27/2024 07:13:26 vitamin D, 25-hydrox y, total, serum 2024 025 [facility], [address], [address], [place], [address], 12/27/2024 07:13:31 noninvasi ve colorecta l cancer DNA + occult blood screening , QL, stool 2024 025 [facility], [address], [address], [place], [address], 12/17/2024 19:04:57 basic metabolic 1998 panel, serum or plasma 2024 025 [facility], [address], [address], [place], [address], 12/27/2024 07:13:27 microalbu min/creat inine, mass ratio, urine 2024 025 [facility], [address], [address], [place], [address], 05/23/2025 04:18:59 urinalysi s complete, reflex culture 2024 025 [facility], [address], [address], [place], [address], 05/23/2025 04:18:59 Referral urologist referral - Peristent hematuria 2022 023 [facility], [address] [place], [address], 07/19/2023 09:29:39 Procedures None recorded. Surgeries None recorded. Imaging electromy ogram + nerve conductio n study - Finger tip numbness 2024 025 [facility] (Cardiology [facility]), [address] [place] [address], [address], 04/23/2025 15:06:58 MAMMO, screening , digital, bilateral 2024 025 [facility], [address] [place] [address], [id number], 05/05/2025 11:47:18 MAMMO, screening , unilatera l - Hx. of right sided breast cancer 2024 025 [facility], [address] [place] [address], [place], [address], 05/14/2025 17:48:55 Medication Orders ergocalci ferol (vitamin D2) 1,250 mcg (50,000 unit) capsule 2024 025 [facility], [address] [place] [address], [id number], 05/21/2025 17:45:38 hydrochlo rothiazid e 25 mg tablet 2024 025 [facility], [address] [place] [address], [id number], 05/21/2025 17:45:38 losartan 25 mg tablet 2024 025 [facility], [address] [place] [address], [id number], 05/21/2025 17:45:38 ergocalci ferol (vitamin D2) 1,250 mcg (50,000 unit) capsule 2024 025 [facility], [address] [place] [address], [id number], 02/27/2025 11:04:10 hydrochlo rothiazid e 25 mg tablet 2024 025 [facility], [address] [place] [address], [id number], 02/27/2025 11:05:48 losartan 25 mg tablet 2024 025 [facility], [address] [place] [address], [id number], 02/27/2025 10:40:39 Debrox 6.5 % ear drops [address] [facility], [address] [place] [address], [id number], 11/29/2024 10:59:56 ofloxacin 0.3 % ear drops [address] [facility] [address] [facility], [address] [place] [address], [id number], 11/29/2024 10:59:46 losartan 25 mg tablet [address] [facility] [address] [facility], [address] [place] [address], [id number], 11/29/2024 10:59:43 hydrochlo rothiazid e 25 mg tablet [address] [facility] [address] [facility], [address] [place] [address], [id number], 11/29/2024 10:59:50 fluticaso ne propionat e 50 mcg/actua tion nasal spray,mickey pension [address] [address] [facility], [address] [place] [address], [id number], 11/29/2024 10:59:53 loratadin e 10 mg tablet 2022 023 [email or web address], [address] [place] [address], [id number], 11/29/2024 10:59:48 Patient TargetsNo targets recorded. Patient Instructions Encounter Date Encounter Id Patient Instructions Last Modified By Organization Details Last Modified Time 01/18/2023 [id number] seasonal allergies: care instructions oajao Not available 01/18/2023 15:55:43 Fluticasone NS Loratadine Ofloxacin [facility] GI as referred Follow up in 6 months oajao Not available 01/18/2023 16:54:49 11/29/2024 [id number] mammogram: about this test oajao Not available 11/29/2024 11:15:36 grief (actual/anticipat ed): care instructions oajao Not available 11/29/2024 11:46:17 learning about healthy weight oajao Not available 11/29/2024 11:43:57 Labs MMG Restart Losartan and then HCTZ Stop smoking Cologuard Follow up as scheduled on 12/23/2024 oajao Not available 11/29/2024 11:46:34 12/23/2024 [id number] abnormal weight loss: care instructions oajao Not available 12/23/2024 18:03:21 Can she be referred her to a GI group elsewhere? Follow up in 3 months and PRN oajao Not available 12/23/2024 18:03:34 02/27/2025 [id number] eating healthy foods: care instructions oajao Not available 02/27/2025 11:17:54 neuropathic pain : care instructions oajao Not available 02/27/2025 11:04:09 Colonoscopy 03/28/2025 EMG/NCS Labs Follow up in 4-6 weeks (Post EMG/NCS) oajao Not available 02/27/2025 10:18:13 04/10/2025 [id number] eating healthy foods: care instructions oajao Not [...] Abnormal Flag Note LastModifiedBy Organization Detail LastModifiedTime 01/03/20 23 01/02/2023 URINA LYSIS , ROUTI NE specific gravity 1.020 1.001- 1.035 Not Available [facility] Department [address] [place], [address], 01/03/2023 06:15:17 01/03/20 23 01/02/2023 URINA LYSIS , ROUTI NE pH 6.0 5.0-7. 0 Not Available [facility] Department [address] [place] [address], [address], 01/03/2023 06:15:17 01/03/20 23 01/02/2023 URINA LYSIS , ROUTI NE urine-color YELLOW yellow Not Available [facility] Department [address] [place], [address], 01/03/2023 06:15:17 01/03/20 23 01/02/2023 URINA LYSIS , ROUTI NE appearance CLEAR Not Available [facility] Department [address] [place], [address], 01/03/2023 06:15:17 01/03/20 23 01/02/2023 URINA LYSIS , ROUTI NE WBC esterase COMMEN T NEGAT SANDY Not Available [facility] Department [address] [place], [address], 01/03/2023 06:15:17 01/03/20 23 01/02/2023 URINA LYSIS , ROUTI NE protein COMMEN T NEGAT SANDY Not Available [facility] Department [address] [place], [address], 01/03/2023 06:15:17 01/03/20 23 01/02/2023 URINA LYSIS , ROUTI NE glucose COMMEN T NEGAT SANDY Not Available [facility] Department [address], [place], [address], 01/03/2023 06:15:17 01/03/2001/02/2023 URINA LYSIS , ROUTI NE ketones COMMEN T NEGAT SANDY Not Available [facility] Department [address], [place], [address], 01/03/2023 06:15:17 01/03/20 23 01/02/2023 URINA LYSIS , ROUTI NE occult blood SEE BELOW: niki/u L negati ve abnormal TRACE -INTA CT Not Available [facility] Department [address], [place], [address], 01/03/2023 06:15:17 01/03/20 23 01/02/2023 URINA LYSIS , ROUTI NE bilirubin COMMEN T negati ve NEGAT SANDY Not Available [facility] Department [address], [place], [address], 01/03/2023 06:15:17 01/03/20 23 01/02/2023 URINA LYSIS , ROUTI NE urobilinogen ,semi-qn 0.2 eu/dL <=1.0 Not Available [facility] Department [address], [place], [address], 01/03/2023 06:15:17 01/03/2001/02/2023 URINA LYSIS , ROUTI NE nitrite, urine COMMEN T negati ve NEGAT SANDY Not Available [facility] Department [address], [place], [address], 01/03/2023 06:15:17 01/03/2001/02/2023 MICRO SCOPI C EXAMI NATIO N WBC COMMEN T NONE SEEN Not Available [facility] Department [address], [place], [address], 01/03/2023 06:15:16 01/03/2001/02/2023 MICRO SCOPI C EXAMI NATIO N RBC 0-2 Not Available [facility] Department [address] [place], [address], 01/03/2023 06:15:16 01/03/20 23 01/02/2023 MICRO SCOPI C EXAMI NATIO N epithelial cells (non renal) COMMEN T OCCAS IONAL Not Available [facility] Department [address] [place], [address], 01/03/2023 06:15:16 01/03/20 23 01/02/2023 MICRO SCOPI C EXAMI NATIO N bacteria COMMEN T NONE SEEN Not Available [facility] Department [address] [place], [address], 01/03/2023 06:15:16 12/12/19 25 12/11/2024 COLOG UARD [...] is negat sandy. TEST DESCR IPTIO N: [place] site algor ithmi c aníbal sis of stool DNA-b ioazar kerpetrona with hemog lobin immun oassa y. Quant itati ve value s of indiv idual bioma rkers are not repor table and are not assoc iated with indiv idual bioma rker resul t refer ence range s. Colog uard is inten ded for color ectal cance r scree alina of adult s of eithe r sex, 45 years or older , who are at [facility] for color ectal cance r ([facility]) . Colog uard has been appro josephine for use by the [place] FDA. The perfo rmanc e of Colog uard was estab lishe d in a cross secti onal study of avera ge-ri sk adult s aged 50-84 . Colog uard perfo rmanc e in patie nts ages 45 to 49 years was estim ated by sub-g graciap aníbal sis of near- age group s. [...] study of 0 indiv idual s at [facility] risk for color ectal cance r who [...] s can be found at www.c jeff freedmand.c om. Not Available [employer] [address], [place], [address], 12/17/2024 19:04:57 12/27/19 25 12/27/2024 LIPID PANEL cholesterol, total 205 mg/dL 100-19 9 above high normal Not Available [facility] ([facility]) [address] [place], [address], 12/27/2024 07:13:26 12/27/19 25 12/27/2024 LIPID PANEL triglyceride s 47 mg/dL 0-149 Not Available [facility] ([facility]) [address] [place], [address], 12/27/2024 07:13:26 12/27/19 25 12/27/2024 LIPID PANEL HDL cholesterol 68 mg/dL >39 Not Available [facility]) [address] [place], [address], 12/27/2024 07:13:26 12/27/19 25 12/27/2024 LIPID PANEL VLDL cholesterol diego 9 mg/dL 5-40 Not Available [facility] ([facility]) [address] [place], [address], 12/27/2024 07:13:26 12/27/19 25 12/27/2024 LIPID PANEL LDL chol calc ([facility]) 128 mg/dL 0-99 above high normal Not Available [facility] ([facility]) [address] [place], [address], 12/27/2024 07:13:26 12/27/19 25 12/27/2024 BASIC METAB OLIC PANEL (7) glucose 80 mg/dL 70-99 Not Available [facility] ([facility]) [address] [place], [address], 12/27/2024 07:13:27 12/27/19 25 12/27/2024 BASIC METAB OLIC PANEL (7) BUN 15 mg/dL 8-27 Not Available [facility] ([facility]) [address] [place], [address], 12/27/2024 07:13:27 12/27/19 25 12/27/2024 BASIC METAB OLIC PANEL (7) creatinine 0.76 mg/dL 0.57-1 .00 Not Available [facility] ([facility]) [address] [facility], [place], [address], 12/27/2024 07:13:27 12/27/19 25 12/27/2024 BASIC METAB OLIC PANEL (7) eGFR 88 mL/mi n/1.7 3 >59 Not Available [facility] ([facility]) [address] [facility], [place], [address], 12/27/2024 07:13:27 12/27/19 25 12/27/2024 BASIC METAB OLIC PANEL (7) BUN/creatini ne ratio 20 12-28 Not Available [facility] ([facility]) [address] [facility], [place], [address], 12/27/2024 07:13:27 12/27/19 25 12/27/2024 BASIC METAB OLIC PANEL (7) sodium 138 mmol/ L 134-14 4 Not Available [facility] ([facility]) [address] [facility], [place], [address], 12/27/2024 07:13:27 12/27/19 25 12/27/2024 BASIC METAB OLIC PANEL (7) potassium 4.2 mmol/ L 3.5-5. 2 Not Available [facility] ([facility]) [address] [facility] [place], [address], 12/27/2024 07:13:27 12/27/19 25 12/27/2024 BASIC METAB OLIC PANEL (7) chloride 99 mmol/ L 96-106 Not Available [facility] ([facility]) [address] [facility], [place], [address], 12/27/2024 07:13:27 12/27/19 25 12/27/2024 BASIC METAB OLIC PANEL (7) carbon dioxide, total 22 mmol/ L 20-29 Not Available [facility] ([facility]) [address] [facility], [place], [address], 12/27/2024 07:13:27 12/27/19 25 12/26/2024 UNABL E TO VOID unable to void COMMEN T Patie nt unabl e to void. Urine to be colle cted at a later date. Not Available [facility] ([facility]) [address] [facility], [place], [address], 12/27/2024 07:13:28 12/27/1912/27/2024 TSH TSH 0.530 uIU/m L 0.450- 4.500 Not Available [facility] ([facility]) [address] [facility], [place], [address], 12/27/2024 07:13:29 12/27/19 25 12/26/2024 CBC, PLATE LET, NO DIFFE RENTI AL WBC 8.1 x10e3 /uL 3.4-10 .8 Not Available [facility] ([facility]) [address] [place], [address], 12/27/2024 07:13:30 12/27/19 25 12/26/2024 CBC, PLATE LET, NO DIFFE RENTI AL RBC 4.19 x10e6 /uL 3.77-5 .28 Not Available [facility] ([facility]) [address] [place], [address], 12/27/2024 07:13:30 12/27/19 25 12/26/2024 CBC, PLATE LET, NO DIFFE RENTI AL hemoglobin 14.0 g/dL 11.1-1 5.9 Not Available [facility] ([facility]) [address] [facility], [place], [address], 12/27/2024 07:13:30 12/27/1912/26/2024 CBC, PLATE LET, NO DIFFE RENTI AL hematocrit 42.3 % 34.0-4 6.6 Not Available [facility] ([facility]) [address] [place], [address], 12/27/2024 07:13:30 12/27/1912/26/2024 CBC, PLATE LET, NO DIFFE RENTI AL MCV 101 fL 79-97 above high normal Not Available [facility] ([facility]) [address] [place], [address], 12/27/2024 07:13:30 12/27/1912/26/2024 CBC, PLATE LET, NO DIFFE RENTI AL MCH 33.4 pg 26.6-3 3.0 above high normal Not Available [facility] ([facility]) [address] [facility], [place], [address], 12/27/2024 07:13:30 12/27/1912/26/2024 CBC, PLATE LET, NO DIFFE RENTI AL MCHC 33.1 g/dL 31.5-3 5.7 Not Available [facility] ([facility]) [address] [place], [address], 12/27/2024 07:13:30 12/27/1912/26/2024 CBC, PLATE LET, NO DIFFE RENTI AL RDW 12.5 % 11.7-1 5.4 Not Available [facility] ([facility]) [address] [place], [address], 12/27/2024 07:13:30 12/27/1912/26/2024 CBC, PLATE LET, NO DIFFE RENTI AL platelets 294 x10e3 /uL 150-45 0 Not Available [facility] ([facility]) [address] [facility], [place], [address], 12/27/2024 07:13:30 07/03/20 25 12/27/2024 VITAM IN D, 25-HY DROXY [...] Medic ine). 2010. Dieta ry refer ence intbeatriz es for calci um and D. Shelby monique [place]: The Natio nal [facility] Press . 2. Mahin nixon [place], Brian atkinson [place], Gainna off-F marcio i VALENTINE, et al. Evalu ation , treat ment, and preve ntion of vitam in D defic iency : an Endoc rine Socie ty clini diego pract ice guide line. JCEM. 2010; 96(7) :1911 -30. Not Available [facility] ([facility]) [address] [facility], [place], [address], 12/27/2024 07:13:31 03/07/2003/12/2025 JESUS MANUEL BY IFA RFX TITER /FANY BLAS JESUS MANUEL by ifa rfx titer/patter n NEGATI VE Negat sandy <1:80 Borde rline 1:80 Posit sandy >1:80 ICA nomen addy re: AC-0 For more infor matio n about Hep-2 cell patte rns use ANApa ttern s.org , the offic ial websi te for the Inter natio nal Conse nsus on Antin uclea r Antib rachel (JESUS MANUEL) Patte rns ([facility] ). Not Available [facility] ([facility]) [address] [facility], [place], [address], 03/12/2025 15:11:37 03/07/2003/08/2025 ESR-W ES+CR P sedimentatio n rate-westerg deejay 8 mm/HR 0-40 Not Available [facility] ([facility]) [address] [facility], [place], [address], 03/12/2025 15:11:38 03/07/20 25 03/08/2025 ESR-W ES+CR P C-reactive protein, quant 1 mg/L 0-10 Not Available [facility] ([facility]) [address] [facility], [place], [address], 03/12/2025 15:11:38 03/07/20 25 03/08/2025 VITAM IN B12 vitamin B12 433 pg/mL 232-12 45 Not Available [facility] ([facility]) [address] [facility], [place], [address], 03/12/2025 15:11:38 04/23/20 25 04/23/2025 elect romyo gram + nerve condu ction study No observ ation record ed. [facility] [address], [place], [address], 04/23/2025 17:44:53 Result Notes None recorded. Problems Name Problem SNOMED Code Status Onset Date Resolution Date Notes Provider Name and Address Organization Details Recorded Time History of total hysterectom y 340752648 Active 2022 Yolanda June MD Attn: Accountin g,[address] [facility], [place], [address], [facility] 3 10:41:03 History of right mastectomy 022951689 Active 2022 Yolanda June MD Attn: Accountin g,[address] [facility], [place], [address], [facility] 3 10:41:04 History of malignant neoplasm of breast 920114645 Active 2022 Yolanda June MD Attn: Accountin g,[address] [facility], [place], [address], [facility] 3 10:48:53 Disorder of lipid metabolism 992121999 Active 2022 Yolanda June MD Attn: Aniya beth,[address] [facility], [place], [place], [address] [place] [address] 2, [place] [facility] 3 11:39:30 Benign essential hypertensio n 6054227 Active 2022 Yolanda June MD Attn: Aniya beth,[address] [facility], [place], [place], [address] [place] [address] 2, [place] [facility] 3 11:39:36 Blood in urine 30985961 Active 2022 Yolanda June MD Attn: Aniya beth,[address] [facility], [place], [place], [address] [place] [address] 2, [place] [facility] 3 13:43:36 Impacted cerumen of bilateral ears 6041501153681 108 Active 2022 Yolanda June MD Attn: Aniya beth,[address] [place], [place], [address] [place] [address] 2, [place] [facility] 3 15:02:14 Simple renal cyst 27432221 Active 2022 Yolanda June MD Attn: Aniya beth,[address] [facility], [place], [place], [address] [place] [address] 2, [place] [facility] 3 15:03:24 Colorectal cancer detected by DNA-based stool screening 992976350 Active 2024 Yolanda June MD Attn: Aniya campos,[address] [place], [address], [place] [facility] 5 09:01:29 Hypercholes terolemia 62667881 Active 2024 Yolanda June MD Attn: Aniya campos,[address] [place], [address], [place] [facility] 5 10:18:45 Problem Notes None recorded. Procedures Surgical History Date Name Laterality Status Provider Name and Address Organization Details Recorded Time 03/28/20 25 colonoscopy completed Yolanda June MD Attn: Accounting,[address], [place], [address], [facility] 04/03/2025 08:21:00 01/03/20 23 Generic Procedure completed Yolanda June MD Attn: Accounting,[address], [place], [address], [facility] 01/02/2023 15:04:14 excision of right breast completed Harika Merida [place] [facility] 09/28/2022 10:33:35 Partial hysterectomy completed Harika Merida [place] [facility] 09/28/2022 10:33:47 Imaging Results None [...] Yolanda June MD Attn: Accounting,[address] [facility], [place], [address], [facility] 11/29/2024 11:44:06 Date Recorded Body weight Body temperature Heart rate Oxygen saturation Systolic And Diastolic Provider Name and Address Organization Details Last Updated DateTime 5 81719.0 7 g 97.8 [degF] 83 /min 100 % 160/92 mm[Hg] Karina Narvaez [facility] 5 11:04:12 Date Recorded Body height Body mass index (BMI) Body weight Heart rate Oxygen saturation Respiratory rate Body temperature Systolic And Diastolic Provider Name and Address Organization Details Last Updated DateTime 5 167.64 cm 18.8 kg/m2 11278.8 7 g 90 /min 96 % 12 /min 98.9 [degF] 134/78 mm[Hg] Harika Merida MA [facility] 5 15:42:01 Date Recorded Body height Body mass index (BMI) Body weight Heart rate Oxygen saturation Systolic And Diastolic Provider Name and Address Organization Details Last Updated DateTime 3 167.64 cm 20 kg/m2 52747.4 5 g 88 /min 99 % 132/80 mm[Hg] Vandana Garcia MA [facility] 3 15:18:19 Date Recorded Body height Body mass index (BMI) Body weight Heart rate Oxygen saturation Respiratory rate Body temperature Systolic And Diastolic Provider Name and Address Organization Details Last Updated DateTime 5 167.64 cm 18.4 kg/m2 99634.4 5 g 68 /min 100 % 14 /min 98.1 [degF] 130/80 mm[Hg] Harika Merida MA [facility] 5 09:40:50 Date Recorded Body height Body mass index (BMI) Body weight Oxygen saturation Heart rate Respiratory rate Systolic And Diastolic Provider Name and Address Organization Details Last Updated DateTime 5 167.64 cm 18.8 kg/m2 64724.4 3 g 100 % 74 /min 14 /min 126/80 mm[Hg] Harika Merida [facility] 15:47:04 Social History Question Answer Notes LastModified by Organizat ion Details LastModified Time Tobacco Smoking Status Current Every Day Smoker Harika Merida [place] null, [place] [facility] 09/28/2022 10:32:23 How Many Years Have You [...] anxious, or unable to sleep at night)? [id number] Information not available 11/29/2024 Family History Relationship Description Onset Age of this Age Resolved Age Notes LastModified by Organization Details LastModified Time Brother Hypertensive disorder oajao Not available 2022 10:46:03 Medical History Condition Response Coronary Artery Disease N Other N Atrial Fibrillation N High Blood Pressure Y Thyroid Problems N Kidney or Bladder Problems N Depression N COPD N Blood Clots N GI Problems N Skin Problems N Anemia N Heart Attack (DE) N Diabetes N Anxiety Disorder N Muscle, Joint, or Bone Problems N Seizures/Epilepsy N Acid Reflux (GERD) N Cancer Y Stroke N Allergies N Asthma N High Cholesterol N Hepatitis N Liver [...] completed Yolanda June MD Attn: Accounting,[address] [place], [address], [place] [facility] 09/28/2022 10:37:44 COVID-19, mRNA, LNP-S, PF, 10 mcg/0.2 mL dose, florin-sucrose 1 completed Yolanda June MD Attn: Accounting,[address] [place], [address], [place] [facility] 10/07/2022 11:41:51 COVID-19, mRNA, LNP-S, PF, 10 mcg/0.2 mL dose, florin-sucrose 1 completed Yolanda June MD Attn: Accounting,[address] [facility], [place], [address], [place] [facility] 09/28/2022 10:44:49 influenza, unspecified formulation 2 completed Yolanda June MD Attn: Accounting,[address] [facility], [place], [address], [place] [facility] 09/28/2022 10:45:18 Tdap 3 completed Harika Merida [place], [place] [facility] 09/28/2022 11:50:32 Pneumococcal conjugate PCV20, polysaccharide [id number] conjugate, adjuvant, PF 5 completed Karina Narvaez [place], [place] [facility] 11/29/2024 17:03:20 Past Encounters Encounter ID Performer Location Encounter Start Date Encounter Closed Date Diagnosis/Indication Diagnosis SNOMED-CT Code Diagnosis ICD10 Code Diagnosis IMO Codes Diagnosis Note [id number] Yolanda June MD [facility] (Adult Med) [address] [place] [phone] 09/28/2022 09:58:40 09/29/2022 14:12:15 Adult health examination 833825798 Z00.01 Benign ess ential hypertension 1922272 I10 History of total hysterectomy 079966931 Z90.710 History of right mastectomy 299097264 Z90.11 Immunization advised 310 709956 Z71.9 History of malignant neoplasm of breast 745633473 Z85.3 Normal grief reaction 27 0399666 F43.20 Nicotine dependence 5629 4008 F17.200 Screening for malignant neoplasm of breast 035824623 Z12.39 Screening for malignant neoplasm of colon 539369073 Z12.11 Impacted c erumen of bilateral ears 2151978314 192063 H61.23 [id number] Yolanda June MD [facility] (Adult Med) [address] [place] [phone] 10/07/2022 11:13:14 10/10/2022 13:51:46 Disorder of lipid metabolism 179087460 E78.9 Benign ess ential hypertension 2105752 I10 Continue HCTZStart Losartan, side effects were discussed Blood in urine 05215209 R31.9 DiscussedA ddendumUAU S [id number] MD [facility] (Adult Med) [address] [place] [phone] 01/18/2023 15:07:20 01/19/2023 14:31:26 Blood in urine 45997833 R31.9 Persistent hematuria, may be from her cystsUrolo gy OV 01/02/2023U S renal cystsRepea t UA OV 10/07/2022 iscussedAd dendumUAUS Seasonal a llergic rhinitis 544754292 J30.2 Otitis externa 2667326 H 60.92 Impacted c erumen of bilateral ears 7403640672 509644 H61.23 Benign ess ential hypertension 7078079 I10 Stable on HCTZ and Losartan. [id number] Yolanda June MD [facility] (Adult [facility]) [address] [place] [address] [phone] 01/02/2023 14:20:15 01/04/2023 10:54:09 Blood in urine 10284728 R31.9 US renal cystsRepea t UA OV 10/07/2022 iscussedAd dendumUAUS Screening for malignant neoplasm of colon 472700099 Z12.11 Impacted c erumen of bilateral ears 1659008207 580083 H61.23 Simple renal cyst 133528 09 N28.1 [id number] Yolanda June MD [facility] (Adult Med) [address] [place] [address] [phone] 11/29/2024 10:48:08 12/02/2024 10:11:50 Blood in urine 02344949 R31.9 Recheck OV 01/18/2023 ersistent hematuria, may be from her cystsUrolo gy OV 01/02/2023U S renal cystsRepea t UA OV 10/07/2022 iscussedAd dendumUAUS Benign ess ential hypertension 4278344 I10 Restart Losartan, then HCTZ, side effects were discussed including but not limited to headaches and dizziness. OV 01/18/2023S table on HCTZ and Losartan. Screening mammography 24 281807 Z12.31 5953618 Requires v accination against Streptococcus pneumoniae 1538845126 Z91.89 87293578 Screening for malignant neoplasm of colon 525960932 Z12.11 796169 Adult [facility] th examination 742312556 Z00.01 5717014 Body mass index less than 20 853497558 Z68.1 64082222 Grief finding 478349112 F43.20 49270 [id number] MD [facility] (Adult Med) [address] [place] [address] [phone] 12/23/2024 15:32:00 12/24/2024 13:15:34 Benign essential hypertension 9716228 I10 Stable OV 11/29/2024Re start Losartan, then HCTZ, side effects were discussed including but not limited to headaches and dizziness. OV 01/18/2023S table on HCTZ and Losartan. Colorectal cancer detected by DNA-based stool screening 399754710 R19.5 16888692 DiscussedG I Note from 12/18/2024 ologuard positive 12/11/2024G I Weight decreased 0938525 01 R63.4 94674 Possibly due to a decrease in her intake.Per iactin? [id number] [facility] [address] [place] [address] [phone] 02/27/2025 09:30:53 02/28/2025 10:50:46 Benign essential hypertension 2992832 I10 Stable on Losartan 25 mg and HCTZ 25 mg Colorectal cancer detected by DNA-based stool screening 522262073 R19.5 75442651 Her colonoscop y has been reschedule d OV 12/23/2024D iscussedGI Note from 12/18/2024 ologuard positive 12/11/2024G I Weight decreased 0358699 01 R63.4 72066 Colonoscop yHer labs do not explain her weight loss.-3 lbsShe will need imaging if her colonoscop y is normal OV 12/23/2024P ossibly due to a decrease in her intake.Per iactin? Vitamin D deficiency 347 95545 E55.9 65205 Start weekly Vitamin D Raynaud's phenomenon 266 249384 I73.00 84782046 Neuropathy 313965571 G62 .9 62685 Hypercholesterolemia 136 09679 E78.00 37846 Discussed Decreased body mass index 4889536 Z68.5 4331080026 Underweight 298846860 R6 3.6 [id number] MD [facility] (Adult Med) [address] [place] [address] [phone] 04/10/2025 15:40:14 04/14/2025 12:00:57 Benign essential hypertension 6658619 I10 Stable on Losartan 25 mg and HCTZ 25 mg Vitamin D deficiency 347 69010 E55.9 77365 On Vitamin D Decreased body mass index 8636741 Z68.8 9886389222 Underweight 956183299 R6 3.6 Sessile se rrated polyp of colon 9423058170 D12.6 4722929760 Health Concerns Section Related Observation LastModified by Organization Detai ls LastModified Time None Recorded Concern Status LastModified by Organization Details LastModified Time None Recorded Advance Directives Directive None Recorded Payers Insurance Date Sequence Insurance Name Policy Number Policy Aguilar Covered Member ID Aguilar Member ID Guarantor Name 04/14/2025 1 [facility] [id number] Jackie Gray [id number] Jackie Gray 04/10/2025 2 [facility] (MEDICARE REPLACEMENT/AD VANTAGE - HMO) Jackie Gray [id number] Jackie Gray 04/10/2025 2 [facility] (MEDICARE REPLACEMENT/AD VANTAGE - HMO) Jackie Gray [id number] Jackie Gray 04/10/2025 1 [facility] Jackie Gray [id number] Jackie Gray 01/02/2023 1 *SELF PAY* Aryan Gray 01/02/2023 SLIDING FEE SCHEDULE - DISCOUNT Jackie Isaac 04/10/2025 1 [facility] PRIOR TO 01/24/2025 (MEDICAID REPLACEMENT - HMO) [id number] Jackie Gary [id number] Jackie Gray Notes Date Note Type Note [...] stones. Yolanda June MD Attn: Accounting,[address] [facility], [place], [address], [facility] [...] well. Yolanda June MD Attn: Accounting,[address] [facility], [place], [address], [facility] [...] February, Yolanda June MD Attn: Accounting,[address] [facility], [place], [address], [facility] [...] Gabapentin. Yolanda June MD Attn: Accounting,[address] [facility], [place], [address], [facility] 02/27/2025 11:18:29 5 text/html ROS as noted in the HPI Five yearsMy hands feel a whole lot different Ms Gray had a colonoscopy, she will need a repeat study in 5 years. Her upper extremity symptoms feel much better since she changed her role at work Yolanda June MD Attn: Accounting,[address] [facility], [place], [address], [facility] SI 04/10/2025 18:11:18 OBGyn Episode No OBEpisode recorded.
--- OUTSIDE RECORDS SUMMARY | 2025-05-23 10:17 | XMS_ITS | Clinical Summary ---
Author Organization [facility] [employer] Address [address] [place] [address] Care Team Providers Care Learning Manager Name Role Phone Renita Sharma MD Primary Care Provider [phone] Source Comments [facility],non-owned Affiliates and Associated Physician Practices is amultiple site organization consisting of ambulatory clinics and hospital sitesin [place], [place], [place] and [place]. This disclosure is being madepursuant to the Care Everywhere program and may not contain all information available regarding this patient. 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 us Historical Provider MD LAB - PATHOLOGY/CYTOLOGY ORDERABLES Final Result [facility] [address] [place] [address], [facility] from Last 3 Months or Most Recently Relevant to Health Maintenance Insurance SELF PAY NO INSURANCE Member Subscriber Plan / Payer (Ef fective for All Dates) Name:IsaacJackie Member ID:Not on file Relation to Subscriber:Not on file Name:ISAACJACKIE Subscriber ID:Not on file (Home) Address: [address] [address] Payer ID:Not on file Group ID:Not on file Type:Self Pay Address: [facility] Care Teams Learning Manager Relationship Specialty Start Date End Date Renita Sharma MD [address] [address] PCP - General 05/10/20
--- OUTSIDE RECORDS SUMMARY | 2025-05-23 10:17 | XMS_ITS | Continuity of Care Document ---
Author Organization [facility] (Adult Med) Address [address] [place] [address] Assessment No assessment recorded. Plan of Treatment Reminders Order Date Submit Date Provider Last Modified By Organization Details Last Modified Time Details Appointments ANY 15 2025 02:30P M Yolanda June MD Not available Not available Not available Lab JESUS MANUEL (antinucl ear antibodie s) screen, ifa, serum 2024 025 [facility], [address] [place] [address], [address], [place], [address], 03/12/2025 15:11:37 inflammat ion panel, serum or plasma 2024 025 [facility], [address] [place] [address], [address], [place], [address], 03/12/2025 15:11:38 vitamin B12, serum 2024 025 [facility], [address] [place] [address], [address], [place], [address], 03/12/2025 15:11:38 Referral None recorded. Procedures None recorded. Surgeries None recorded. Imaging electromy ogram + nerve conductio n study - Finger tip numbness 2024 025 [facility] (Cardiology & Emg), [address], [place], [address], 04/23/2025 15:06:58 Medication Orders ergocalci ferol (vitamin D2) 1,250 mcg (50,000 unit) capsule 2024 025 [facility], [address] [place] [address], [phone], 02/27/2025 11:04:10 Patient TargetsNo targets recorded. Patient Instructions Encounter Date Encounter Id Patient Instructions Last Modified By Organization Details Last Modified Time 02/27/2025 [id number] eating healthy foods: care instructions oajao Not available 02/27/2025 11:17:54 neuropathic pain : care instructions oajao Not available 02/27/2025 11:04:09 Colonoscopy 03/28/2025 EMG/NCS Labs Follow up in 4-6 weeks (Post EMG/NCS) oajao Not available 02/27/2025 10:18:13 Reason for Referral None Reported. Results Created Date Observation Date Name Description Value Unit Range Abnormal Flag Note LastModifiedBy Organization Detail LastModifiedTime 03/07/2003/12/2025 JESUS MANUEL BY IFA RFX TITER /FANY BLAS JESUS MANUEL by ifa rfx titer/patter n NEGATI VE Negat reginald <1:80 Borde rline 1:80 Posit reginald >1:80 ICAP nomveronica daly re: AC-0 For more infor matio n about Hep-2 cell patte rns use ANApa ttern s.org , the offic ial websi te for the Inter natio nal Conse nsus on Antin uclea r Antib rachel (JESUS MANUEL) Patte rns (ICA ). Not Available [facility]) [address], [place], [address], 03/12/2025 15:11:37 03/07/2003/08/2025 ESR-W ES+CR P sedimentatio n rate-westerg deejay 8 mm/HR 0-40 Not Available [facility] ([facility]) [address], [place], [address], 03/12/2025 15:11:38 03/07/2003/08/2025 ESR-W ES+CR P C-reactive protein, quant 1 mg/L 0-10 Not Available [facility] ([facility]) [address], [place], [address], 03/12/2025 15:11:38 03/07/20 25 03/08/2025 VITAM IN B12 vitamin B12 433 pg/mL 232-12 45 Not Available [facility] ([facility]) [address], [place], [address], 03/12/2025 15:11:38 04/23/20 25 04/23/2025 elect romyo gram + nerve condu ction study No observ ation record ed. [facility] [address], [place], [address], 04/23/2025 17:44:53 Result Notes None recorded. Problems Name Problem SNOMED Code Status Onset Date Resolution Date Notes Provider Name and Address Organization Details Recorded Time History of total hysterectom y 301095422 Active 2022 Yolanda June MD Attn: Accountin g,[address] [facility], [place], [address], [facility] 3 10:41:03 History of right mastectomy 962885665 Active 2022 oYlanda June MD Attn: Accountin g,[address] [facility], [place], [address], [facility] 3 10:41:04 History of malignant neoplasm of breast 001204637 Active 2022 Yolanda June MD Attn: Accountin g,[address] [facility], [place], [address], [facility] 3 10:48:53 Disorder of lipid metabolism 579166468 Active 2022 Yolanda June MD Attn: Accountin g,[address] [facility], [place], [address], [facility] 3 11:39:30 Benign essential hypertensio n 2540635 Active 2022 Yolanda June MD Attn: Aniya campos,[address] [facility], [place], [address], [place] [facility] 3 11:39:36 Blood in urine 51308653 Active 2022 Yolanda June MD Attn: Kalpeshkathia campos,[address] [facility], [place], [address], [place] [facility] 3 13:43:36 Impacted cerumen of bilateral ears 0104713274707 108 Active 2022 Yolanda June MD Attn: Kalpeshkathia campos,[address] [facility], [place], [address], [facility] 3 15:02:14 Simple renal cyst 77209217 Active 2022 Yolanda June MD Attn: Aniya campos,[address] [facility], [place], [address], [place] [facility] 3 15:03:24 Colorectal cancer detected by DNA-based stool screening 255121182 Active 2024 Yolanda June MD Attn: Aniya campos,[address] [facility], [place], [address], [place] [facility] 5 09:01:29 Hypercholes terolemia 98899062 Active 2024 Yolanda June MD Attn: Aniya campos,[address] [facility], [place], [address], [place] [facility] 5 10:18:45 Problem Notes None recorded. Procedures Surgical History Date Name Laterality Status Provider Name and Address Organization Details Recorded Time 03/28/20 25 colonoscopy completed Yolanda June MD Attn: Accounting,[address] [facility], [place], [address], [place] [facility] 04/03/2025 08:21:00 01/03/20 23 Generic Procedure completed Yolanda June MD Attn: Accounting,[address] [place], [address], [place] [facility] 01/02/2023 15:04:14 excision of right breast completed Harika Merida MA MD - [facility] 09/28/2022 10:33:35 Partial hysterectomy completed Harika Merida MA [facility] 09/28/2022 10:33:47 Imaging Results None recorded. [...] Available Not Available Vitals Date Recorded Body height Body mass index (BMI) Body weight Heart rate Oxygen saturation Respiratory rate Body temperature Systolic And Diastolic Provider Name and Address Organization Details Last Updated DateTime 167.64 cm 18.4 kg/m2 92749.4 5 g 68 /min 100 % 14 /min 98.1 [degF] 130/80 mm[Hg] Harika Merida MA MD - [facility] 09:40:50 Social History Question Answer Notes LastModified by Organizat ion Details LastModified Time Tobacco Smoking Status Current Every Day Smoker Harika MANOLO Merida null, MD - [facility] 09/28/2022 10:32:23 How Many Years Have [...] anxious, or unable to sleep at night)? [id number] Information not available 11/29/2024 Family History Relationship Description Onset Age of this Age Resolved Age Notes LastModified by Organization Details LastModified Time Brother Hypertensive disorder oajao Not available 2022 10:46:03 Medical History Condition Response Coronary Artery Disease N Other N Atrial Fibrillation N High Blood Pressure Y Kidney or Bladder Problems N Thyroid Problems N GI Problems N Depression N COPD N Blood Clots N Skin Problems N Anemia N Heart Attack (NE) N Anxiety Disorder N Diabetes N Muscle, Joint, or Bone Problems N Seizures/Epilepsy N Acid Reflux (GERD) N Cancer Y Stroke N Asthma N Allergies N High Cholesterol N Hepatitis N Liver Disease N Headaches N Heart Failure N Osteoporosis N Gynecological History Statement/Question Response Current Control Method Hysterectom y Obstetrics History GPAL:G 0 P 0 0 0 0 Immunizations Vaccine Type Date Status Note Provider Nam e and Address Organization Details Recorded Time COVID-19, mRNA, LNP-S, PF, 30 mcg/0.3 mL dose 2 completed Yolanda June MD Attn: Accounting,[address] [place], [address], [place] [facility] 09/28/2022 10:37:44 COVID-19, mRNA, LNP-S, PF, 10 mcg/0.2 mL dose, florin-sucrose 1 completed Yolanda June MD Attn: Accounting,[address] [place], [address], [place] [facility] 10/07/2022 11:41:51 COVID-19, mRNA, LNP-S, PF, 10 mcg/0.2 mL dose, florin-sucrose 1 completed Yolanda June MD Attn: Accounting,[address], [place], [address], [place] [facility] 09/28/2022 10:44:49 influenza, unspecified formulation 2 completed Yolanda June MD Attn: Accounting,[address], [place], [address], [place] [facility] 09/28/2022 10:45:18 Tdap 3 completed Harika Merida [place] null, [place] [facility] 09/28/2022 11:50:32 Pneumococcal conjugate PCV20, polysaccharide LBQ057 conjugate, adjuvant, PF 5 completed Karina Narvaez null, [place] [facility] 11/29/2024 17:03:20 Past Encounters Encounter ID Performer Location Encounter Start Date Encounter Closed Date Diagnosis/Indication Diagnosis SNOMED-CT Code Diagnosis ICD10 Code Diagnosis IMO Codes Diagnosis Note [id number] Yolanda June MD [facility] (Adult Med) [address] [place] [address] 02/27/2025 09:30:53 02/28/2025 10:50:46 Benign essential hypertension 1909728 I10 Stable on Losartan 25 mg and HCTZ 25 mg Colorectal cancer detected by DNA-based stool screening 358261145 R19.5 [id number] Her colonoscop y has been reschedule d OV 12/23/2024D iscussedGI Note from 12/18/2024 ologuard positive 12/11/2024G I Weight decreased 9494238 01 R63.4 05291 Colonoscop yHer labs do not explain her weight loss.-3 lbsShe will need imaging if her colonoscop y is normal OV 12/23/2024P ossibly due to a decrease in her intake.Per iactin? Vitamin D deficiency 347 02114 E55.9 68665 Start weekly Vitamin D Raynaud's phenomenon 266 306791 I73.00 98753034 Neuropathy 368038197 G62 .9 57797 Hypercholesterolemia 136 74929 E78.00 49629 Discussed Decreased body mass index 5291377 Z68.3 7364421905 Underweight 899308623 R6 3.6 Health Concerns Section Related Observation LastModified by Organization Detai ls LastModified Time None Recorded Concern Status LastModified by Organization Details LastModified Time None Recorded Payers Encounter Date Sequence Insurance Name Policy Number Policy Aguilar Covered Member ID Aguilar Member ID Guarantor Name 02/27/2025 1 [facility] [id number] Jackie Gray [id number] Jackie Gray Notes Date Note Type Note Provider Name and Address Organization Details Recorded Time 02/27/2025 text/html ROS as noted in the HPI [...] Tramadol and Gabapentin. Yolanda June MD Attn: Accounting,[address] [facility], [place], [address], [facility] 02/27/2025 11:18:29 OBGyn Episode No OBEpisode recorded.
== END 2025-05-23 10:12 | disposition home or self-care (01) ==
LOC: ANHFOHIMG 10:13
PROVIDERS: PCP Internal Medicine Infectious Disease; Visit Provider Internal Medicine Infectious Disease
DX: Z12.31 Encounter for screening mammogram for malignant neoplasm of breast (principal); R92.1 Mammographic calcification found on diagnostic imaging of breast
CPT/HCPCS: 77063; 77067